=== PATIENT | female | born 1960 | race American Indian/Alaskan Native ===

== ENCOUNTER 2017-06-08 03:27 | Emergency (ER) | payer BC ==
--- NOTE | 2017-06-08 04:24 | ED PDOC ---
HPI: Female Pain Time Seen by Provider: 06/08/17 03:43 Chief Complaint (Nursing): Female Genitourinary Chief Complaint (Provider): Dysuria and Frequency History Per: Patient History/Exam Limitations: no limitations Onset/Duration Of Symptoms: Days (2 days ago) Current Symptoms Are (Timing): Still Present Additional Complaint(s): 56 yo female with a history of diabetes and hypertension, presents to the ED complaining of frequency and dysuria, onset of 2 days ago. Patient reports having protected intercourse, for the first time in 2 years, in her apartment on 2 days ago, where she felt a popping sensation in the vagina. She denies any blood but states that this was when pain ensued. Past Medical History Reviewed: Historical Data, Nursing Documentation, Vital Signs Vital Signs: Last Vital Signs Temp 98.7 F 06/08/17 03:38 Pulse 120 H 06/08/17 03:38 Resp 16 06/08/17 03:38 BP 130/103 H 06/08/17 03:38 Pulse Ox 99 06/08/17 03:38 - Medical History PMH: Diabetes, HTN, Hyperlipidemia - Surgical History Surgical History: Cholecystectomy - Family History Family History: States: Unknown Family Hx - Social History Current smoker - smoking cessation education provided: No Ex-Smoker (has not smoked in the last 12 months): No Alcohol: Social Drugs: Denies - Home Medications Home Medications: Ambulatory Orders Medication Instructions Recorded Naproxen 500 mg PO Q12 #20 tab 04/07/15 Nitrofurantoin Macrocrystals 100 mg PO BID 5 Days cap 06/08/17 [Macrobid] Phenazopyridine [Pyridium] 200 mg PO TID 2 Days tab 06/08/17 - Allergies Allergies/Adverse Reactions: Allergies Allergy/AdvReac Type Severity Reaction Status Date / Time No Known Allergies Allergy Verified 04/07/15 07:40 Review of Systems ROS Statement: Except As Marked, All Systems Reviewed And Found Negative Genitourinary Female: Positive for: Dysuria, Frequency, Other (popping sensation in the vagina). Negative for: Hematuria, Vaginal Bleeding Physical Exam - Reviewed Nursing Documentation Reviewed: Yes Vital Signs Reviewed: Yes - Physical Exam Appears: Positive for: Well, Non-toxic, No Acute Distress Head Exam: Positive for: ATRAUMATIC, NORMAL INSPECTION, NORMOCEPHALIC Skin: Positive for: Normal Color, Warm, DRY Eye Exam: Positive for: EOMI, Normal appearance, PERRL ENT: Positive for: Normal ENT Inspection Neck: Positive for: Normal, Painless ROM Cardiovascular/Chest: Positive for: Regular Rate, Rhythm. Negative for: Murmur Respiratory: Positive for: Normal Breath Sounds. Negative for: Respiratory Distress Gastrointestinal/Abdominal: Positive for: Normal Exam, Soft. 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 Negative for: Pedal Edema, Deformity Neurologic/Psych: Positive for: Alert, Oriented. Negative for: Motor/Sensory Deficits - ECG O2 Sat by Pulse Oximetry: 99 (RA) Pulse Ox Interpretation: Normal Medical Decision Making Medical Decision Making: Time: --04:00 Impression: --UTI vs mechanical trauma of intercourse Plan: --ED Urine Dip --ED Urine Preg --Urine Culture --Urinalysis Reassess --06:04 Labs reviewed and show a UTI is present. Patient is stable for discharge home. BP improved, HR decreasing. Scribe Attestation: Documented by Jeovany Sol acting as a scribe for Juan Diane MD. Provider Attestation: All medical record entries made by the Scribe were at my direction and personally dictated by me. I have reviewed the chart and agree that the record accurately reflects my personal performance of the history, physical exam, medical decision making, and the department course for this patient. I have also personally directed, reviewed, and agree with the discharge instructions and disposition. Disposition - Clinical Impression Clinical Impression: Urinary tract infection - Disposition Referrals: [facility] [place] [Outside] Disposition: Routine/Home Disposition Time: 06:04 Condition: IMPROVED Prescriptions: Nitrofurantoin Macrocrystals [Macrobid] 100 mg PO BID 5 Days cap Phenazopyridine [Pyridium] 200 mg PO TID 2 Days tab Instructions: Urinary Tract Infection, Adult (DC) Forms: [facility] (Greek)
[2017-06-08 05:33] LABS: URINE BACTERIA FEW (<OCC); URINE BILIRUBIN NEGATIVE (NEGATIVE); URINE BLOOD LARGE (NEGATIVE); URINE CLARITY TURBID (Clear); URINE COLOR AMBER (YELLOW); URINE GLUCOSE (UA) 150 mg/dL (Normal); URINE LEUKOCYTE ESTERASE LARGE Leu/uL (Negative); URINE NITRATE NEGATIVE (NEGATIVE); URINE PROTEIN 100 mg/dL (NEGATIVE); URINE UROBILINOGEN 0.2-1.0 mg/dL (0.2-1.0); WBC CLUMPS RARE /hpf
[2017-06-08 06:24] VITALS: BP 122/66; PULSE 106; RESP 17; TEMP 98.2; O2SAT 100
== END 2017-06-08 06:06 | disposition home or self-care (01) ==
LOC: H.ER 03:27
DX: N39.0 Urinary tract infection, site not specified (principal); E11.9 Type 2 diabetes mellitus without complications; E78.5 Hyperlipidemia, unspecified; I10 Essential (primary) hypertension

== ENCOUNTER 2017-06-24 21:55 | Inpatient (IN) | payer BC ==
[2017-06-24] MEDS ORDERED: Sodium Chloride 0.9% 1,000 ML IV STA (22:48)
[2017-06-24 23:11] LABS: SQUAMOUS EPITHIAL 16 /hpf (0-5); URINE BACTERIA RARE (<OCC); URINE BILIRUBIN NEGATIVE (NEGATIVE); URINE BLOOD SMALL (NEGATIVE); URINE CLARITY CLOUDY (Clear); URINE COLOR AMBER (YELLOW); URINE GLUCOSE (UA) NEG (Normal); URINE LEUKOCYTE ESTERASE LARGE Leu/uL (Negative); URINE PROTEIN 100 mg/dL (NEGATIVE); WBC CLUMPS FEW /hpf
[2017-06-24 23:18] LABS: BASO % 0.3 % (0.0-2.0); HEMOGLOBIN 12.2 g/dL (12.0-16.0); LYMPH # 0.9 K/uL (1.0-4.3); LYMPH % 5.8 % (20.0-40.0); MEAN CELL VOLUME 87.1 fl (81.0-99.0); MEAN CORPUSCULAR HGB CONC 34.4 g/dL (33.0-37.0); MEAN PLATELET VOLUME 8.5 fl (7.2-11.7); MONO # 0.4 K/uL (0.0-0.8); MONO % 2.7 % (0.0-10.0); NEUT # 13.5 K/uL (1.8-7.0); NEUT % 91.2 % (50.0-75.0); NRBC % 0.1 % (0.0-0.0); PLATELET COUNT 278 K/uL (130-400); RBC 4.07 Mil/uL (3.80-5.20); RED CELL DISTRIBUTION WIDTH 12.9 % (11.5-14.5); WHITE BLOOD COUNT 14.8 K/uL (4.8-10.8)
[2017-06-24] MEDS ORDERED: cefTRIAXone (Rocephin) 1 gm Inj ONE (23:25)
[2017-06-24 23:32] LABS: VENOUS BLOOD GAS BASE EXCESS 5.9 mmol/L (0.0-2.0); VENOUS BLOOD GAS PCO2 31 mmHg (40-60); VENOUS BLOOD GAS PO2 46 mm/Hg (30-55); VENOUS BLOOD PH 7.56 (7.32-7.43)
[2017-06-24 23:33] LABS: BLOOD UREA NITROGEN 17 mg/dl (7-17); CALCIUM 9.6 mg/dL (8.4-10.2); GFR AFRICAN-AMERICAN > 60; GFR NON-AFRICAN AMERICAN > 60
--- NOTE | 2017-06-24 23:36 | ED PDOC ---
HPI: General Adult Time Seen by Provider: 06/24/17 22:45 Chief Complaint (Nursing): Back Pain Chief Complaint (Provider): fever, dysuria, back pain History Per: Patient History/Exam Limitations: no limitations Onset/Duration Of Symptoms: Days (2x) Current Symptoms Are (Timing): Still Present Additional Complaint(s): 56 y/o female with a past medical history of diabetes and hypertension presents to the ED complaining of fever, dysuria, back pain onset two days ago and two episodes of vomiting. Reports of urine infection and was given Nitrofurantoin without any relief. Patient developed fever, dysuria, and abdominal pain afterwards. Patient took Tylenol for the fever. PMD: Dr. Newton Past Medical History Reviewed: Historical Data, Nursing Documentation, Vital Signs Vital Signs: Last Vital Signs Temp 101.7 F H 06/24/17 23:45 Pulse 133 H 06/24/17 22:09 Resp 18 06/24/17 22:09 BP 141/91 H 06/24/17 22:09 Pulse Ox 97 06/24/17 23:39 - Medical History PMH: Diabetes, HTN, Hyperlipidemia Denies: Chronic Kidney Disease - Surgical History Surgical History: Cholecystectomy, - Family History Family History: States: Unknown Family Hx - Home Medications Home Medications: Ambulatory Orders Medication Instructions Recorded Nitrofurantoin Macrocrystals 100 mg PO BID 5 Days cap 06/08/17 [Macrobid] Atorvastatin [Lipitor] 20 mg PO DAILY 06/24/17 Insulin Degludec/Liraglutide See Protocol SQ DAILY 06/24/17 [Xultophy 100 Unit-3.6MG/ml Pen] Metformin HCl [Glucophage] 1 tab PO BID 06/24/17 - Allergies Allergies/Adverse Reactions: Allergies Allergy/AdvReac Type Severity Reaction Status Date / Time latex Allergy Severe ANAPHYLAXIS Verified 06/24/17 22:06 Review of Systems ROS Statement: Except As Marked, All Systems Reviewed And Found Negative Constitutional: Positive for: Fever Gastrointestinal: Positive for: Vomiting (2 episodes), Abdominal Pain Genitourinary Female: Positive for: Dysuria Musculoskeletal: Positive for: Back Pain Physical Exam - Reviewed Nursing Documentation Reviewed: Yes Vital Signs Reviewed: Yes - Physical Exam Appears: Positive for: Well, Non-toxic, No Acute Distress Head Exam: Positive for: ATRAUMATIC, NORMAL INSPECTION, NORMOCEPHALIC Skin: Positive for: Normal Color, Warm, Dry Eye Exam: Positive for: EOMI, Normal appearance, PERRL ENT: Positive for: Normal ENT Inspection Neck: Positive for: Normal, Painless ROM, Supple. Negative for: Decreased ROM Cardiovascular/Chest: Positive for: Tachycardia. Negative for: Murmur Respiratory: Positive for: Normal Breath Sounds. Negative for: Decreased Breath Sounds, Accessory Muscle Use, Wheezing Gastrointestinal/Abdominal: Positive for: Tenderness (suprapubic ) Back: Positive for: Normal Inspection. Negative for: L CVA Tenderness, R CVA Tenderness Extremity: Positive for: Normal ROM. Negative for: Tenderness, Pedal Edema, Deformity Neurologic/Psych: Positive for: Alert, Oriented, Gait - Laboratory Results Result Diagrams: 06/24/17 23:15 06/24/17 23:15 - ECG O2 Sat by Pulse Oximetry: 97 (RA) Pulse Ox Interpretation: Normal Medical Decision Making Medical Decision Making: Time: 23:15 Initial Impression: Fever with dysuria and back pain Differential Diagnosis includes but is not limited to: urinary tract infection with complications and equal pyelonephritis, kidney stone, and sepsis Initial Plan: --VBG Shock Panel --Abdomen & Pelvis IV Contrast [CT] --BMP --CBC --Normal Saline 1,000 mls/hr --Rocephin 1gm --Tylenol 975mg --Blood Culture --Urine Culture --Urinalysis --Reevaluation Documented by Sanjana Astorga acting as a scribe for Pratibha Valdivia MD. All medical record entries made by the Scribe were at my direction and personally dictated by me. I have reviewed the chart and agree that the record accurately reflects my personal performance of the history, physical exam, medical decision making, and the department course for this patient. I have also personally directed, reviewed, and agree with the discharge instructions and disposition. Disposition - Clinical Impression Clinical Impression: Urinary tract infection, Pyelonephritis, Sepsis - Patient ED Disposition Is Patient to be Admitted: Yes Discussed With DrRebel: Kennedy Campos Doctor Will See Patient In The: ED Counseled Patient/Family Regarding: Studies Performed, Diagnosis - Disposition Disposition Time: 23:50 Condition: FAIR - Pt Status Changed To: Hospital Disposition Of: Inpatient - Admit Certification Admit to Inpatient:: After my assessment, the patient will require hospitalization for at least two midnights. This is because of the severity of symptoms shown, intensity of services needed, and/or the medical risk in this patient being treated as an outpatient. - POA Present On Arrival: Poor Glycemic Control
[2017-06-24] MEDS ORDERED: Iohexol 300 100 ML IJ ONE (23:57)
[2017-06-24] MEDS ORDERED: Sodium Chloride 0.9% 100 ML ONE (23:57)
--- NOTE | 2017-06-25 00:15 | CP.PCM.HP ---
History of Present Illness - History of Present Illness History of Present Illness: PMD: Dr. Newton Chief complaint: Fever/Dysuria/Abdominal pain The patient was seen and examined din the ED HPI: 56 years olf female with hx of DM II, HTN and HLD who comes with Fever, continuous right back pain radiating to the Infraumbilical region, associated with dysuria and urinary frequency, vomiting diarrhea and dizziness. She was last seen in this ED on 06/08/17 and diagnosed with UTI, receiving prescription for Macrobid for 5 days. She continued with these symptoms after the Antibiotics finished and saw her PMD one day prior coming to the ED. In the ED the Temperature was 102.5F, HR 133/min PMH: DM II; HTN, HLD PSH: Cholecystectomy, X2; Tummy tuck; SH: Alcohol socially; No illegal drug use; No smoking FH: States: Unknown Family Hx Allergies: Latex Stirum Medidcation: Reviewed Present on Admission - Present on Admission Any Indicators Present on Admission: No History of DVT/PE: No History of Uncontrolled Diabetes: No Urinary Catheter: No Decubitus Ulcer Present: No Review of Systems - Constitutional Constitutional: Chills, Fever, Headache. absent: Anorexia - EENT Eyes: Requires Corrective Lenses. absent: Decreased Night Vision, Diplopia, Sees Flashes Ears: absent: Decreased Hearing, Ear Discharge, Tinnitus Nose/Mouth/Throat: absent: Epistaxis, Nasal Congestion, Nasal Discharge, Sinus Pain, Sinus Pressure - Cardiovascular Cardiovascular: absent: Chest Pain, Dyspnea, Pedal Edema - Respiratory Respiratory: absent: Cough, Dyspnea, Wheezing, Snoring, Stridor - Gastrointestinal Gastrointestinal: Abdominal Pain, Diarrhea. absent: Nausea, Vomiting - Genitourinary Genitourinary: Dysuria. absent: Flank Pain, Urinary Frequency - Musculoskeletal Musculoskeletal: Back Pain. absent: Limited Range of Motion - Integumentary Integumentary: absent: Pruritus, Rash, Skin Ulcer, Sores, Striae, Swelling - Neurological Neurological: Dizziness, Headaches - Psychiatric Psychiatric: absent: Anxiety, Depression, Difficulty Concentrating, Panic Attacks - Endocrine Endocrine: absent: Palpitations, Polydipsia, Polyphagia, Polyuria - Hematologic/Lymphatic Hematologic: absent: Easy Bleeding, Easy Bruising Past Patient History - Past Medical History & Family History Past Medical History?: Yes - Past Social History Smoking Status: Never Smoked Chewing Tobacco Use: No Cigar Use: No Alcohol: Social Drugs: Denies Home Situation {Lives}: With Family - CARDIAC Hx Hypertension: Yes - PULMONARY Hx Respiratory Disorders: No - NEUROLOGICAL Hx Neurological Disorder: No - HEENT Hx HEENT Problems: No - RENAL Hx Chronic Kidney Disease: No - ENDOCRINE/METABOLIC Hx Diabetes Mellitus Type 2: Yes - HEMATOLOGICAL/ONCOLOGICAL Hx Blood Disorders: No - INTEGUMENTARY Hx Dermatological Problems: No - MUSCULOSKELETAL/RHEUMATOLOGICAL Hx Musculoskeletal Disorders: No - GASTROINTESTINAL Hx Gastrointestinal Disorders: No - GENITOURINARY/GYNECOLOGICAL Hx Urinary Tract Infection: Yes - PSYCHIATRIC Hx Psychophysiologic Disorder: No Hx Substance Use: No - SURGICAL HISTORY Hx Section: Yes (X2) Hx Cholecystectomy: Yes - ANESTHESIA Hx Anesthesia: Yes Hx Anesthesia Reactions: No Meds Allergies/Adverse Reactions: Allergies Allergy/AdvReac Type Severity Reaction Status Date / Time latex Allergy Severe ANAPHYLAXIS Verified 06/24/17 22:06 Physical Exam - Constitutional Appears: No Acute Distress - Head Exam Head Exam: ATRAUMATIC, NORMAL INSPECTION, NORMOCEPHALIC - Eye Exam Eye Exam: EOMI, Normal appearance Pupil Exam: NORMAL ACCOMODATION, PERRL - ENT Exam ENT Exam: Mucous Membranes Moist, Normal Exam, Normal External Ear Exam - Neck Exam Neck exam: Positive for: Full Rom, Normal Inspection. Negative for: Lymphadenopathy, Tenderness - Respiratory Exam Respiratory Exam: Clear to Auscultation Bilateral. absent: Rales, Rhonchi, Wheezes - Cardiovascular Exam Cardiovascular Exam: REGULAR RHYTHM, RRR, +S1, +S2 - GI/Abdominal Exam Additional comments: Flat, Soft, pain at infraumbilicl region,no guarding, no rebound tenderness, Decreased bowel sounds. - Rectal Exam Rectal Exam: Deferred - Extremities Exam Extremities exam: Positive for: full ROM, normal inspection. Negative for: pedal edema, tenderness - Back Exam Back exam: CVA tenderness (R), NORMAL INSPECTION - Neurological Exam Neurological exam: Oriented x3, Reflexes Normal - Psychiatric Exam Psychiatric exam: Normal Affect, Normal Mood - Skin Skin Exam: Dry, Intact, Normal Color, Warm Results - Vital Signs Recent Vital Signs: Last Vital Signs Temp 101.7 F H 06/24/17 23:45 Pulse 133 H 06/24/17 22:09 Resp 18 06/24/17 22:09 BP 141/91 H 03/08/18 22:09 Pulse Ox 97 06/24/17 23:51 - Labs Result Diagrams: 06/24/17 23:15 06/24/17 23:15 Labs: Laboratory Results - last 24 hr 06/24/17 06/24/17 06/24/17 22:58 23:15 23:15 WBC 14.8 H RBC 4.07 Hgb 12.2 Hct 35.4 MCV 87.1 MCH 30.0 MCHC 34.4 RDW 12.9 Plt Count 278 MPV 8.5 Neut % (Auto) 91.2 H Lymph % (Auto) 5.8 L Curry % (Auto) 2.7 Eos % (Auto) 0.0 Baso % (Auto) 0.3 Neut # (Auto) 13.5 H Lymph # (Auto) 0.9 L Curry # (Auto) 0.4 Eos # (Auto) 0.0 Baso # (Auto) 0.0 pO2 VBG pH VBG pCO2 VBG HCO3 VBG Total CO2 VBG O2 Sat (Calc) VBG Base Excess VBG Potassium Glucose Lactate FiO2 Sodium 138 Potassium 3.4 L Chloride 95 L Carbon Dioxide 27 Anion Gap 19 BUN 17 Creatinine 0.8 Est GFR ( Amer) > 60 Est GFR (Non-Af Amer) > 60 Random Glucose 203 H Calcium 9.6 Venous Blood Potassium Urine Color Janell Urine Clarity Cloudy Urine pH 7.0 Ur Specific Trent 1.015 Urine Protein 100 Urine Glucose (UA) Neg Urine Ketones Negative Urine Blood Small Urine Nitrate Positive H Urine Bilirubin Negative Urine Urobilinogen 2.0 H Ur Leukocyte Esterase Large Urine RBC (Auto) 70 H Urine WBC Clumps (Auto) Few H Urine Microscopic WBC 796 H Ur Squamous Epith Cells 16 H Urine Bacteria Rare 06/24/17 23:26 WBC RBC Hgb Hct MCV MCH MCHC RDW Plt Count MPV Neut % (Auto) Lymph % (Auto) Curry % (Auto) Eos % (Auto) Baso % (Auto) Neut # (Auto) Lymph # (Auto) Curry # (Auto) Eos # (Auto) Baso # (Auto) pO2 46 VBG pH 7.56 H VBG pCO2 31 L VBG HCO3 29.3 VBG Total CO2 28.8 H VBG O2 Sat (Calc) 92.8 H VBG Base Excess 5.9 H VBG Potassium 3.4 L Glucose 208 H Lactate 1.9 FiO2 21.0 Sodium 136.0 Potassium Chloride 100.0 Carbon Dioxide Anion Gap BUN Creatinine Est GFR ( Amer) Est GFR (Non-Af Amer) Random Glucose Calcium Venous Blood Potassium 3.4 L Urine Color Urine Clarity Urine pH Ur Specific Trent Urine Protein Urine Glucose (UA) Urine Ketones Urine Blood Urine Nitrate Urine Bilirubin Urine Urobilinogen Ur Leukocyte Esterase Urine RBC (Auto) Urine WBC Clumps (Auto) Urine Microscopic WBC Ur Squamous Epith Cells Urine Bacteria - Imaging and Cardiology CT scan - abdomen Status: Image reviewed by me, Report reviewed by me Additional comment: EXAM: CT Abdomen and Pelvis With Intravenous Contrast EXAM DATE/TIME: 06/24/2017 11:03 PM FINDINGS: Lower thorax: The heart size is normal. There is dependent atelectasis at the lung bases. There is a small hiatal hernia. ABDOMEN: Liver: There is fatty infiltration of the liver. Gallbladder and bile ducts: Gallbladder is absent.There is prominence of the common duct. Pancreas: unremarkable Spleen: unremarkable Adrenals: unremarkable Kidneys and ureters: There is a left renal cyst.Left kidney is unremarkable. There is mild left ureteral mucosal thickening. There are peripheral cortical perfusion defects greatest in the upper pole of the right kidney. There is mild renal pelvic and ureteral mucosal thickening and enhancement. There is very mild right ureterectasis. There are no ureteral stones. Stomach and bowel: Stomach is incompletely distended which accentuates the gastric wall.Bowel rotation is normal. Small bowel is mildly distended with fluid and air. There is no obstruction. There is mild terminal ileal wall thickening. Appendix is unremarkable. There is mild transverse colon wall thickening.Colon is incompletely distended which limits evaluation. There is diverticulosis. Appendix: See stomach and bowel PELVIS: Bladder: Bladder is partially distended. There is mild bladder wall thickening. Reproductive: Uterus and adnexal structures are unremarkable. ABDOMEN and PELVIS: Intraperitoneal space: There is no significant fluid.There is no free air. Bones/joints: There are degenerative changes in the osseus structures. Soft tissues: unremarkable Vasculature: There are multiple calcified phleboliths in both flanks. There are multiple phleboliths in the pelvis. There are atherosclerotic calcifications in the aorta. Lymph nodes: There is no pathologic adenopathy. IMPRESSION: Right pyelonephritis, right renal pelvic and bilateral ureteral mucosal thickening and enhancement consistent with urinary tract infection; bladder wall thickening consistent with cystitis;; ileus; possible enterocolitis Assessment & Plan - Assessment and Plan (Free Text) Assessment: #. Acute Pyelonephritis with Cystitis #. Sepsis #. Enterocolitis #. DM II with hyperglycemia #. Hypokalemia Plan: 56 years olf female with hx of DM II, HTN and HLD who comes with Fever, continuous right back pain radiating to the Infraumbilical region, associated with dysuria and urinary frequency, vomiting diarrhea and dizziness. She was last seen in this ED on 06/08/17 and diagnosed with UTI, receiving prescription for Macrobid for 5 days. She continued with these symptoms after the Antibiotics finished and saw her PMD one day prior coming to the ED. In the ED the Temperature was 102.5F, HR 133/min #. Acute Pyelonephritis with Cystitis - Zosyn - Pain management #. Sepsis - Consult ID Dr Elias - Follow Blood and Urine culture - Antibiotics - IV fluids #. Enterocolitis - Stool for C Diff - Flagyl #. DM II with Hyperglycemia - Regular Insulin slicing scale according to Accucheck - Hold Glucophage - #. Hypokalemia, replaced - KCL mantenance in IV Fluids - follow electrolytes #. DVT prophylaxis with lovenox #. Code Status: Full - Date & Time Date: 06/25/17 Time: 00:14
[2017-06-25] MEDS ORDERED: Potassium Chloride 20 mEq ER Tab PO ONE ×2 (00:34→01:44)
--- NOTE | 2017-06-25 00:39 | CT ---
EXAM: CT Abdomen and Pelvis With Intravenous Contrast EXAM DATE/TIME: 06/24/2017 11:03 PM CLINICAL HISTORY: 56 years old, female; Signs and symptoms; Fever; Prior surgery; Surgery date: 6+ months; Surgery type: Gall bladder. x 3; Additional info: Dysuria back pain fever TECHNIQUE: Axial computed tomography images of the abdomen and pelvis with intravenous contrast. All CT scans at this facility use one or more dose reduction techniques, viz.: automated exposure control; ma/kV adjustment per patient size (including targeted exams where dose is matched to indication; i.e. head); or iterative reconstruction technique. Coronal and sagittal reformatted images were created and reviewed. CONTRAST: 90 mL of [id number] administered intravenously. COMPARISON: There are no prior studies for comparison. FINDINGS: Lower thorax: The heart size is normal. There is dependent atelectasis at the lung bases. There is a small hiatal hernia. ABDOMEN: Liver: There is fatty infiltration of the liver. Gallbladder and bile ducts: Gallbladder is absent.There is prominence of the common duct. Pancreas: unremarkable Spleen: unremarkable Adrenals: unremarkable Kidneys and ureters: There is a left renal cyst.Left kidney is unremarkable. There is mild left ureteral mucosal thickening. There are peripheral cortical perfusion defects greatest in the upper pole of the right kidney. There is mild renal pelvic and ureteral mucosal thickening and enhancement. There is very mild right ureterectasis. There are no ureteral stones. Stomach and bowel: Stomach is incompletely distended which accentuates the gastric wall.Bowel rotation is normal. Small bowel is mildly distended with fluid and air. There is no obstruction. There is mild terminal ileal wall thickening. Appendix is unremarkable. There is mild transverse colon wall thickening.Colon is incompletely distended which limits evaluation. There is diverticulosis. Appendix: See stomach and bowel PELVIS: Bladder: Bladder is partially distended. There is mild bladder wall thickening. Reproductive: Uterus and adnexal structures are unremarkable. ABDOMEN and PELVIS: Intraperitoneal space: There is no significant fluid.There is no free air. Bones/joints: There are degenerative changes in the osseus structures. Soft tissues: unremarkable Vasculature: There are multiple calcified phleboliths in both flanks. There are multiple phleboliths in the pelvis. There are atherosclerotic calcifications in the aorta. Lymph nodes: There is no pathologic adenopathy. IMPRESSION: Right pyelonephritis, right renal pelvic and bilateral ureteral mucosal thickening and enhancement consistent with urinary tract infection; bladder wall thickening consistent with cystitis;; ileus; possible enterocolitis Additional nonemergent findings as described above.
[2017-06-25] MEDS ORDERED: Potassium Chl 20 mEq in NS 1,000 ML IV SCH (00:45)
[2017-06-25 01:02] LABS: BANDS 7 % (0-2); LYMPHOCYTE 11 % (20-50); MONOCYTE 2 % (0-10); NEUTROPHIL 80 % (42-75); TOTAL CELLS COUNTED 100
[2017-06-25 01:04] LABS: ANISOCYTOSIS SLIGHT
[2017-06-25 01:05] LABS: HYPOCHROMIC SLIGHT; LARGE PLATELETS PRESENT; PLATELET ESTIMATE NORMAL (NORMAL)
--- NOTE | 2017-06-25 01:14 | ED PDOC ---
- Laboratory Results Result Diagrams: 06/24/17 23:15 06/24/17 23:15 - ECG O2 Sat by Pulse Oximetry: 97 (RA) Pulse Ox Interpretation: Normal Medical Decision Making Medical Decision Making: Time: 00:00 Patient signed out to me by Dr. Bocanegra pending sobriety and reevaluation. Documented by Sanjana Astorga acting as a scribe for Pratibha Valdivia MD. All medical record entries made by the Scribe were at my direction and personally dictated by me. I have reviewed the chart and agree that the record accurately reflects my personal performance of the history, physical exam, medical decision making, and the department course for this patient. I have also personally directed, reviewed, and agree with the discharge instructions and disposition. Disposition - Clinical Impression Clinical Impression: Urinary tract infection, Pyelonephritis, Sepsis - Disposition Condition: FAIR
[2017-06-25] MEDS: metroNIDAZOLE 500mg/100ml NS 100 ML IVPB SCH ×2 (03:50→08:21)
[2017-06-25] MEDS: Piperacillin/Tazobact 3.375 GM in Sodium Chloride 0.9% 100 ML IVPB SCH ×2 (04:42→10:09)
[2017-06-25 07:17] LABS: BASO # 0.1 K/uL (0.0-0.2); BASO % 0.4 % (0.0-2.0); EOS % 0.1 % (0.0-4.0); HEMOGLOBIN 11.3 g/dL (12.0-16.0); LYMPH # 1.7 K/uL (1.0-4.3); MEAN CELL VOLUME 88.4 fl (81.0-99.0); MEAN CORPUSCULAR HEMOGLOBIN 29.4 pg (27.0-31.0); MEAN CORPUSCULAR HGB CONC 33.3 g/dL (33.0-37.0); MEAN PLATELET VOLUME 8.4 fl (7.2-11.7); MONO # 1.1 K/uL (0.0-0.8); MONO % 5.7 % (0.0-10.0); NEUT # 15.9 K/uL (1.8-7.0); NEUT % 84.8 % (50.0-75.0); RBC 3.84 Mil/uL (3.80-5.20); RED CELL DISTRIBUTION WIDTH 12.9 % (11.5-14.5); WHITE BLOOD COUNT 18.8 K/uL (4.8-10.8)
[2017-06-25] MEDS: Insulin Regular 100 units/ml SC SCH ×4 (07:31→22:00)
[2017-06-25 07:49] LABS: BLOOD UREA NITROGEN 13 mg/dl (7-17); CALCIUM 9.1 mg/dL (8.4-10.2); GFR AFRICAN-AMERICAN > 60; GFR NON-AFRICAN AMERICAN > 60
--- NOTE | 2017-06-25 09:58 | CP.PCM.CON ---
History of Present Illness - History of Present Illness History of Present Illness: Infectious Disease Consultation Note- asked to see this patient at the request of the hospitalist for pyelonephritis/ sepsis HPI- Krystal is a 56 year old female with PMH of HTN, DM II, HLD who is admitted with dysurea, fever, chills, flank pain and in ED had Ct which was read as pyelonephritis and had + UA and fever and hence admitted for IV antibiotics and treament of this. patient also explains that about 2 weeks ago she had similar symptoms and came to ED and was diagnosed with UTI adn was d/c home with oral macrobid and she felt better for couple day but then her symptoms returned and this time much more intense. In the ED Temperature was 102.5F, HR 133/min. pt. also states she had nausea but states today she feels slightly betetr compared to admission but she still has right flank and back pain. PMH: DM II; HTN, HLD PSH: Cholecystectomy, X2; Tummy kemick; SH: Alcohol socially; No illegal drug use; No smoking FH: States: Unknown Family Hx Allergies: Latex Bledsoe NKDA Medidcation: Reviewed Review of Systems - Review of Systems Review of Systems: ROS- + fever, + chills, Denies any GUTIERREZ, denies any cough, denies any sob, denies any chest pain,+ lower abd and right flank and lower back pain, + nause , no vomiting, no diarrhea + dysurea denies any recent travel denies any sick contacts Past Patient History - Past Medical History & Family History Past Medical History?: Yes - Past Social History Smoking Status: Never Smoked Chewing Tobacco Use: No Cigar Use: No Alcohol: Social Drugs: Denies Home Situation {Lives}: With Family - CARDIAC Hx Hypertension: Yes - PULMONARY Hx Respiratory Disorders: No - NEUROLOGICAL Hx Neurological Disorder: No - HEENT Hx HEENT Problems: No - RENAL Hx Chronic Kidney Disease: No - ENDOCRINE/METABOLIC Hx Diabetes Mellitus Type 2: Yes - HEMATOLOGICAL/ONCOLOGICAL Hx Blood Disorders: No - INTEGUMENTARY Hx Dermatological Problems: No - MUSCULOSKELETAL/RHEUMATOLOGICAL Hx Musculoskeletal Disorders: No - GASTROINTESTINAL Hx Gastrointestinal Disorders: No - GENITOURINARY/GYNECOLOGICAL Hx Urinary Tract Infection: Yes - PSYCHIATRIC Hx Psychophysiologic Disorder: No Hx Substance Use: No - SURGICAL HISTORY Hx Section: Yes (X2) Hx Cholecystectomy: Yes - ANESTHESIA Hx Anesthesia: Yes Hx Anesthesia Reactions: No Meds Allergies/Adverse Reactions: Allergies Allergy/AdvReac Type Severity Reaction Status Date / Time latex Allergy Severe ANAPHYLAXIS Verified 06/24/17 22:06 - Medications Medications: Current Medications Acetaminophen (Tylenol 325mg Tab) 650 mg PO Q4 PRN PRN Reason: Fever >100.4 F Acetaminophen (Tylenol 325mg Tab) 650 mg PO Q4 PRN PRN Reason: For Pain scale 1-7 Enoxaparin Sodium (Lovenox) 40 mg SC DAILY CHELSY PRN Reason: Protocol Potassium Chloride/Sodium Chloride (Potassium Chl 20 Meq In Ns) 1,000 mls @ 100 mls/hr IV .Q10H [facility] Stop: 06/25/17 10:44 Last Admin: 06/25/17 02:22 Dose: 100 mls/hr Piperacillin Sod/Tazobactam (Sod 3.375 gm/ Sodium Chloride) 100 mls @ 100 mls/ hr IVPB Q6 CHELSY PRN Reason: Protocol Last Admin: 06/25/17 04:42 Dose: 100 mls/hr Metronidazole (Flagyl 500mg/100ml Ns) 100 mls @ 100 mls/hr IVPB Q8@0400,1200, 2000 CHELSY PRN Reason: Protocol Ibuprofen (Motrin Tab) 600 mg PO Q6 PRN PRN Reason: Pain, severe (8-10) Last Admin: 06/25/17 09:25 Dose: 600 mg Insulin Human Regular (Humulin R) 0 units SC ACHS CHELSY PRN Reason: Protocol Last Admin: 06/25/17 07:31 Dose: Not Given Physical Exam - Constitutional Appears: No Acute Distress - Head Exam Head Exam: ATRAUMATIC - Eye Exam Eye Exam: EOMI, PERRL - ENT Exam ENT Exam: Normal Oropharynx - Neck Exam Neck exam: Positive for: Full Rom - Respiratory Exam Respiratory Exam: Clear to Auscultation Bilateral, NORMAL BREATHING PATTERN - Cardiovascular Exam Cardiovascular Exam: RRR, +S1, +S2 - GI/Abdominal Exam GI & Abdominal Exam: Normal Bowel Sounds, Soft Additional comments: + tenderness with palpation in the lower abd mostly right lower abd and flank and + right CVA tenderness No rebound - Extremities Exam Extremities exam: Positive for: normal inspection - Neurological Exam Neurological exam: Alert, Oriented x3 Results - Vital Signs Recent Vital Signs: Last Vital Signs Temp 99.2 F 03/09/18 07:55 Pulse 97 H 06/25/17 07:55 Resp 20 06/25/17 07:55 BP 123/80 06/25/17 07:55 Pulse Ox 98 06/25/17 07:55 - Labs Result Diagrams: 06/25/17 06:50 06/25/17 06:50 Labs: Laboratory Results - last 24 hr 06/24/17 06/24/17 06/24/17 22:58 23:15 23:15 WBC 14.8 H RBC 4.07 Hgb 12.2 Hct 35.4 MCV 87.1 MCH 30.0 MCHC 34.4 RDW 12.9 Plt Count 278 MPV 8.5 Neut % (Auto) 91.2 H Lymph % (Auto) 5.8 L [place] % (Auto) 2.7 Eos % (Auto) 0.0 Baso % (Auto) 0.3 Neut # (Auto) 13.5 H Lymph # (Auto) 0.9 L [place] # (Auto) 0.4 Eos # (Auto) 0.0 Baso # (Auto) 0.0 Neutrophils % (Manual) 80 H Band Neutrophils % 7 H Lymphocytes % (Manual) 11 L Monocytes % (Manual) 2 Platelet Estimate Normal Large Platelets Present Hypochromasia (manual) Slight Anisocytosis (manual) Slight Macrocytosis (manual) Slight pO2 VBG pH VBG pCO2 VBG HCO3 VBG Total CO2 VBG O2 Sat (Calc) VBG Base Excess VBG Potassium Glucose Lactate FiO2 Sodium 138 Potassium 3.4 L Chloride 95 L Carbon Dioxide 27 Anion Gap 19 BUN 17 Creatinine 0.8 Est GFR ( Amer) > 60 Est GFR (Non-Af Amer) > 60 POC Glucose (mg/dL) Random Glucose 203 H Calcium 9.6 Venous Blood Potassium Urine Color Janell Urine Clarity Cloudy Urine pH 7.0 Ur Specific [place] 1.015 Urine Protein 100 Urine Glucose (UA) Neg Urine Ketones Negative Urine Blood Small Urine Nitrate Positive H Urine Bilirubin Negative Urine Urobilinogen 2.0 H Ur Leukocyte Esterase Large Urine RBC (Auto) 70 H Urine WBC Clumps (Auto) Few H Urine Microscopic WBC 796 H Ur Squamous Epith Cells 16 H Urine Bacteria Rare 06/24/17 06/25/17 06/25/17 23:26 06:05 06:50 WBC 18.8 H RBC 3.84 Hgb 11.3 L Hct 34.0 MCV 88.4 MCH 29.4 MCHC 33.3 RDW 12.9 Plt Count 273 MPV 8.4 Neut % (Auto) 84.8 H Lymph % (Auto) 9.0 L [place] % (Auto) 5.7 Eos % (Auto) 0.1 Baso % (Auto) 0.4 Neut # (Auto) 15.9 H Lymph # (Auto) 1.7 [place] # (Auto) 1.1 H Eos # (Auto) 0.0 Baso # (Auto) 0.1 Neutrophils % (Manual) Band Neutrophils % Lymphocytes % (Manual) Monocytes % (Manual) Platelet Estimate Large Platelets Hypochromasia (manual) Anisocytosis (manual) Macrocytosis (manual) pO2 46 VBG pH 7.56 H VBG pCO2 31 L VBG HCO3 29.3 VBG Total CO2 28.8 H VBG O2 Sat (Calc) 92.8 H VBG Base Excess 5.9 H VBG Potassium 3.4 L Glucose 208 H Lactate 1.9 FiO2 21.0 Sodium 136.0 Potassium Chloride 100.0 Carbon Dioxide Anion Gap BUN Creatinine Est GFR ( Amer) Est GFR (Non-Af Amer) POC Glucose (mg/dL) 152 H Random Glucose Calcium Venous Blood Potassium 3.4 L Urine Color Urine Clarity Urine pH Ur Specific [place] Urine Protein Urine Glucose (UA) Urine Ketones Urine Blood Urine Nitrate Urine Bilirubin Urine Urobilinogen Ur Leukocyte Esterase Urine RBC (Auto) Urine WBC Clumps (Auto) Urine Microscopic WBC Ur Squamous Epith Cells Urine Bacteria 06/25/17 06:50 WBC RBC Hgb Hct MCV MCH MCHC RDW Plt Count MPV Neut % (Auto) Lymph % (Auto) [place] % (Auto) Eos % (Auto) Baso % (Auto) Neut # (Auto) Lymph # (Auto) [place] # (Auto) Eos # (Auto) Baso # (Auto) Neutrophils % (Manual) Band Neutrophils % Lymphocytes % (Manual) Monocytes % (Manual) Platelet Estimate Large Platelets Hypochromasia (manual) Anisocytosis (manual) Macrocytosis (manual) pO2 VBG pH VBG pCO2 VBG HCO3 VBG Total CO2 VBG O2 Sat (Calc) VBG Base Excess VBG Potassium Glucose Lactate FiO2 Sodium 143 Potassium 3.9 Chloride 101 Carbon Dioxide 27 Anion Gap 19 BUN 13 Creatinine 0.8 Est GFR ( Amer) > 60 Est GFR (Non-Af Amer) > 60 POC Glucose (mg/dL) Random Glucose 149 H Calcium 9.1 Venous Blood Potassium Urine Color Urine Clarity Urine pH Ur Specific [place] Urine Protein Urine Glucose (UA) Urine Ketones Urine Blood Urine Nitrate Urine Bilirubin Urine Urobilinogen Ur Leukocyte Esterase Urine RBC (Auto) Urine WBC Clumps (Auto) Urine Microscopic WBC Ur Squamous Epith Cells Urine Bacteria Laboratory Results - last 72 hr 06/24/17 06/24/17 06/24/17 22:58 23:15 23:15 WBC 14.8 H RBC 4.07 Hgb 12.2 Hct 35.4 MCV 87.1 MCH 30.0 MCHC 34.4 RDW 12.9 Plt Count 278 MPV 8.5 Neut % (Auto) 91.2 H Lymph % (Auto) 5.8 L [place] % (Auto) 2.7 Eos % (Auto) 0.0 Baso % (Auto) 0.3 Neut # (Auto) 13.5 H Lymph # (Auto) 0.9 L [place] # (Auto) 0.4 Eos # (Auto) 0.0 Baso # (Auto) 0.0 Neutrophils % (Manual) 80 H Band Neutrophils % 7 H Lymphocytes % (Manual) 11 L Monocytes % (Manual) 2 Platelet Estimate Normal Large Platelets Present Hypochromasia (manual) Slight Anisocytosis (manual) Slight Macrocytosis (manual) Slight pO2 VBG pH VBG pCO2 VBG HCO3 VBG Total CO2 VBG O2 Sat (Calc) VBG Base Excess VBG Potassium Glucose Lactate FiO2 Sodium 138 Potassium 3.4 L Chloride 95 L Carbon Dioxide 27 Anion Gap 19 BUN 17 Creatinine 0.8 Est GFR ( Amer) > 60 Est GFR (Non-Af Amer) > 60 POC Glucose (mg/dL) Random Glucose 203 H Calcium 9.6 Venous Blood Potassium Urine Color Janell Urine Clarity Cloudy Urine pH 7.0 Ur Specific [place] 1.015 Urine Protein 100 Urine Glucose (UA) Neg Urine Ketones Negative Urine Blood Small Urine Nitrate Positive H Urine Bilirubin Negative Urine Urobilinogen 2.0 H Ur Leukocyte Esterase Large Urine RBC (Auto) 70 H Urine WBC Clumps (Auto) Few H Urine Microscopic WBC 796 H Ur Squamous Epith Cells 16 H Urine Bacteria Rare 06/24/17 06/25/17 06/25/17 23:26 06:05 06:50 WBC 18.8 H RBC 3.84 Hgb 11.3 L Hct 34.0 MCV 88.4 MCH 29.4 MCHC 33.3 RDW 12.9 Plt Count 273 MPV 8.4 Neut % (Auto) 84.8 H Lymph % (Auto) 9.0 L [place] % (Auto) 5.7 Eos % (Auto) 0.1 Baso % (Auto) 0.4 Neut # (Auto) 15.9 H Lymph # (Auto) 1.7 [place] # (Auto) 1.1 H Eos # (Auto) 0.0 Baso # (Auto) 0.1 Neutrophils % (Manual) Band Neutrophils % Lymphocytes % (Manual) Monocytes % (Manual) Platelet Estimate Large Platelets Hypochromasia (manual) Anisocytosis (manual) Macrocytosis (manual) pO2 46 VBG pH 7.56 H VBG pCO2 31 L VBG HCO3 29.3 VBG Total CO2 28.8 H VBG O2 Sat (Calc) 92.8 H VBG Base Excess 5.9 H VBG Potassium 3.4 L Glucose 208 H Lactate 1.9 FiO2 21.0 Sodium 136.0 Potassium Chloride 100.0 Carbon Dioxide Anion Gap BUN Creatinine Est GFR ( Amer) Est GFR (Non-Af Amer) POC Glucose (mg/dL) 152 H Random Glucose Calcium Venous Blood Potassium 3.4 L Urine Color Urine Clarity Urine pH Ur Specific [place] Urine Protein Urine Glucose (UA) Urine Ketones Urine Blood Urine Nitrate Urine Bilirubin Urine Urobilinogen Ur Leukocyte Esterase Urine RBC (Auto) Urine WBC Clumps (Auto) Urine Microscopic WBC Ur Squamous Epith Cells Urine Bacteria 06/25/17 06/25/17 06:50 10:56 WBC RBC Hgb Hct MCV MCH MCHC RDW Plt Count MPV Neut % (Auto) Lymph % (Auto) [place] % (Auto) Eos % (Auto) Baso % (Auto) Neut # (Auto) Lymph # (Auto) [place] # (Auto) Eos # (Auto) Baso # (Auto) Neutrophils % (Manual) Band Neutrophils % Lymphocytes % (Manual) Monocytes % (Manual) Platelet Estimate Large Platelets Hypochromasia (manual) Anisocytosis (manual) Macrocytosis (manual) pO2 VBG pH VBG pCO2 VBG HCO3 VBG Total CO2 VBG O2 Sat (Calc) VBG Base Excess VBG Potassium Glucose Lactate FiO2 Sodium 143 Potassium 3.9 Chloride 101 Carbon Dioxide 27 Anion Gap 19 BUN 13 Creatinine 0.8 Est GFR ( Amer) > 60 Est GFR (Non-Af Amer) > 60 POC Glucose (mg/dL) 227 H Random Glucose 149 H Calcium 9.1 Venous Blood Potassium Urine Color Urine Clarity Urine pH Ur Specific [place] Urine Protein Urine Glucose (UA) Urine Ketones Urine Blood Urine Nitrate Urine Bilirubin Urine Urobilinogen Ur Leukocyte Esterase Urine RBC (Auto) Urine WBC Clumps (Auto) Urine Microscopic WBC Ur Squamous Epith Cells Urine Bacteria Microbiology 06/08/17 04:00 Urine,Clean Catch Urine Culture - Final Escherichia Coli Streptococcus anginosus group Accession No. : [id number] Patient Name / ID : ERIS Cruz / [id number] Exam Date : 06/25/2017 00:02:20 ( Approved ) Study Comment : Sex / Age : F / 56Y Creator : TERESITA GANDHI Dictator : Fisher Trap : Patrol Mother : TERESITA GANDHI Approver2 : Report Date : 06/25/2017 00:38:00 My Comment : [facility] Division of Radiology [address] [place] [address] Tel. no. Patient Name: JOAQUIM SCHULTE Pt. Address: [address] [place] [address] Rec #: [id number] [place] [address]: Shea BUENO, Pratibha Craft Pt CELL Order Location: [facility] : 1960 Female Age: 56 Order #: [id number] Reason for exam: dysuria back pain fever CT Scan ABD PELVIS IV CONTRAST ONLY Exam Date: 06/24/17 This imaging exam was performed at [facility] EXAM: CT Abdomen and Pelvis With Intravenous Contrast EXAM DATE/TIME: 06/24/2017 11:03 PM CLINICAL HISTORY: 56 years old, female; Signs and symptoms; Fever; Prior surgery; Surgery date : 6+ months; Surgery type: Gall bladder. x 3; Additional info: Dysuria back pain fever TECHNIQUE: Axial computed tomography images of the abdomen and pelvis with intravenous contrast. All CT scans at this facility use one or more dose reduction techniques, viz.: automated exposure control; ma/kV adjustment per patient size (including targeted exams where dose is matched to indication; i.e. head); or iterative reconstruction technique. Coronal and sagittal reformatted images were created and reviewed. CONTRAST: 90 mL of [id number] administered intravenously. COMPARISON: There are no prior studies for comparison. FINDINGS: Lower thorax: The heart size is normal. There is dependent atelectasis at the lung bases. There is a small hiatal hernia. ABDOMEN: Liver: There is fatty infiltration of the liver. Gallbladder and bile ducts: Gallbladder is absent.There is prominence of the common duct. Pancreas: unremarkable Spleen: unremarkable Adrenals: unremarkable Kidneys and ureters: There is a left renal cyst.Left kidney is unremarkable. There is mild left ureteral mucosal thickening. There are peripheral cortical perfusion defects greatest in the upper pole of the right kidney. There is mild renal pelvic and ureteral mucosal thickening and enhancement. There is very mild right ureterectasis. There are no ureteral stones. Stomach and bowel: Stomach is incompletely distended which accentuates the gastric wall.Bowel rotation is normal. Small bowel is mildly distended with fluid and air. There is no obstruction. There is mild terminal ileal wall thickening. Appendix is unremarkable. There is mild transverse colon wall thickening.Colon is incompletely distended which limits evaluation. There is diverticulosis. Appendix: See stomach and bowel PELVIS: Bladder: Bladder is partially distended. There is mild bladder wall thickening. Reproductive: Uterus and adnexal structures are unremarkable. ABDOMEN and PELVIS: Intraperitoneal space: There is no significant fluid.There is no free air. Bones/joints: There are degenerative changes in the osseus structures. Soft tissues: unremarkable Vasculature: There are multiple calcified phleboliths in both flanks. There are multiple phleboliths in the pelvis. There are atherosclerotic calcifications in the aorta. Lymph nodes: There is no pathologic adenopathy. IMPRESSION: Right pyelonephritis, right renal pelvic and bilateral ureteral mucosal thickening and enhancement consistent with urinary tract infection; bladder wall thickening consistent with cystitis;; ileus; possible enterocolitis Additional nonemergent findings as described above. Dictated By: Teresita Gandhi MD, MD Dictated Date/Time: 06/25/1737 Signed By: Teresita Gandhi MD Date Signed: 37 Transcribed By: HANK Transcribe Date/Time : 06/25/1737 JUANJOSE/MINH Assessment & Plan (1) Pyelonephritis Status: Acute (2) Sepsis Status: Acute (3) Urinary tract infection Status: Acute (4) Fever Status: Acute (5) Leukocytosis Status: Acute - Assessment and Plan (Free Text) Assessment: A/P- 56 year old female with DM Ii admitted with UTI and found to have Right pyelonephritis. febrile + lukocytoisis with left shift + UA urine cx from 06/08/2017e.coli pansensitive and strep anginosus. plan- check blood cx x 2 await urine cx from this admission. advise to d/c zosyn. advise to styart IV meropenem based on the RYLAND and sensitivities of the e.coli in urine cx from 06/08. monitor wbc and temp closely. all above d/w patient and she verbalizes full understanding of all above. Thank you for allowing me to take part in the care of this patient.
[2017-06-25] MEDS: Enoxaparin 40 mg Syringe SC SCH (10:09)
[2017-06-25] MEDS ORDERED: metroNIDAZOLE 500mg/100ml NS 100 ML IVPB SCH (12:00)
[2017-06-25] MEDS: Meropenem 1 GM in Sodium Chloride 0.9% 100 ML IVPB SCH (17:50)
[2017-06-25] MEDS: Sodium Chloride 0.9% 1,000 ML IV SCH (18:55)
[2017-06-26] MEDS: Meropenem 1 GM in Sodium Chloride 0.9% 100 ML IVPB SCH ×3 (01:00→16:14)
[2017-06-26] MEDS: Sodium Chloride 0.9% 1,000 ML IV SCH ×2 (05:00→14:58)
[2017-06-26] MEDS: Insulin Regular 100 units/ml SC SCH ×4 (06:39→22:10)
[2017-06-26 07:12] LABS: BASO % 0.3 % (0.0-2.0); EOS # 0.1 K/uL (0.0-0.7); EOS % 0.4 % (0.0-4.0); HEMOGLOBIN 11.1 g/dL (12.0-16.0); LYMPH # 2.1 K/uL (1.0-4.3); LYMPH % 15.2 % (20.0-40.0); MEAN CELL VOLUME 87.8 fl (81.0-99.0); MEAN CORPUSCULAR HEMOGLOBIN 29.3 pg (27.0-31.0); MEAN CORPUSCULAR HGB CONC 33.4 g/dL (33.0-37.0); MEAN PLATELET VOLUME 8.7 fl (7.2-11.7); MONO # 1.2 K/uL (0.0-0.8); MONO % 8.7 % (0.0-10.0); NEUT # 10.4 K/uL (1.8-7.0); NEUT % 75.4 % (50.0-75.0); RBC 3.78 Mil/uL (3.80-5.20); RED CELL DISTRIBUTION WIDTH 13.1 % (11.5-14.5); WHITE BLOOD COUNT 13.8 K/uL (4.8-10.8)
[2017-06-26 07:17] LABS: BLOOD UREA NITROGEN 10 mg/dl (7-17); CALCIUM 8.9 mg/dL (8.4-10.2); GFR AFRICAN-AMERICAN > 60; GFR NON-AFRICAN AMERICAN > 60
[2017-06-26] MEDS: Enoxaparin 40 mg Syringe SC SCH (09:01)
--- NOTE | 2017-06-26 10:57 | CP.PCM.PN ---
Subjective - Date & Time of Evaluation Date of Evaluation: 06/26/17 Time of Evaluation: 10:45 - Subjective Subjective: Still with low grade fever complains of flank pain dysuria resolved sl hypogastric discomfort no CP no SOB Objective - Vital Signs/Intake and Output Vital Signs (last 24 hours): Temp Pulse Resp BP Pulse Ox 99.7 F H 114 H 20 160/88 H 97 06/26/17 08:32 06/26/17 08:32 06/26/17 08:32 06/26/17 08:32 06/26/17 08:32 - Medications Medications: Current Medications Acetaminophen (Tylenol 325mg Tab) 650 mg PO Q4 PRN PRN Reason: Fever >100.4 F Acetaminophen (Tylenol 325mg Tab) 650 mg PO Q4 PRN PRN Reason: For Pain scale 1-7 Enoxaparin Sodium (Lovenox) 40 mg SC DAILY CHELSY PRN Reason: Protocol Last Admin: 06/26/17 09:01 Dose: 40 mg Meropenem 1 gm/ Sodium (Chloride) 100 mls @ 100 mls/hr IVPB Q8 CHELSY PRN Reason: Protocol Last Admin: 06/26/17 09:00 Dose: 100 mls/hr Sodium Chloride (Sodium Chloride 0.9%) 1,000 mls @ 100 mls/hr IV .Q10H [facility] Stop: 06/26/17 18:43 Last Admin: 06/26/17 05:00 Dose: Not Given Ibuprofen (Motrin Tab) 600 mg PO Q6 PRN PRN Reason: Pain, severe (8-10) Last Admin: 06/25/17 09:25 Dose: 600 mg Insulin Human Regular (Humulin R) 0 units SC ACHS CHELSY PRN Reason: Protocol Last Admin: 06/26/17 06:39 Dose: Not Given Ketorolac Tromethamine (Toradol) 15 mg IVP Q6 PRN PRN Reason: Pain, moderate (4-7) Ketorolac Tromethamine (Toradol) 30 mg IVP Q6 PRN PRN Reason: Pain, severe (8-10) Last Admin: 06/26/17 09:05 Dose: 30 mg - Labs Labs: 06/26/17 05:20 06/26/17 05:20 - Constitutional Appears: No Acute Distress - Head Exam Head Exam: ATRAUMATIC, NORMAL INSPECTION, NORMOCEPHALIC - Eye Exam Eye Exam: EOMI, Normal appearance Pupil Exam: NORMAL ACCOMODATION - ENT Exam ENT Exam: Mucous Membranes Moist, Normal External Ear Exam - Neck Exam Neck Exam: Full ROM. absent: Meningismus - Respiratory Exam Respiratory Exam: NORMAL BREATHING PATTERN. absent: Respiratory Distress - Cardiovascular Exam Cardiovascular Exam: REGULAR RHYTHM, +S1, +S2 - GI/Abdominal Exam GI & Abdominal Exam: Soft, Tenderness (hypogastric), Normal Bowel Sounds - Extremities Exam Extremities Exam: Full ROM, Normal Capillary Refill. absent: Calf Tenderness, Pedal Edema - Back Exam Back Exam: CVA tenderness (L), CVA tenderness (R) - Neurological Exam Neurological Exam: Alert, Awake, CN II-XII Intact, Oriented x3 - Psychiatric Exam Psychiatric exam: Normal Affect, Normal Mood - Skin Skin Exam: Dry, Normal Color, Warm Assessment and Plan (1) Sepsis Status: Acute (2) Pyelonephritis Status: Acute (3) DM type 2 (diabetes mellitus, type 2) Status: Acute - Assessment and Plan (Free Text) Assessment: 56 y/o lady with hx of DM, came in bec of fever, dysuria and flank pain. CT of the abd/Pelvis: Right pyelonephritis, right renal pelvic and bilateral ureteral mucosal thickening and enhancement consistent with urinary tract infection; bladder wall thickening consistent with cystitis;; ileus; possible enterocolitis (1) Sepsis sec to Pyelonephritis Status: Acute Urine c/s: Gram neg rods Blood c/s: neg so far cont IV Meropenem ID: following pt IVF hydration (2) DM type 2 (diabetes mellitus, type 2) Status: Acute accucheck start Levemir 8 units q hs DVT proph: Lovenox
--- NOTE | 2017-06-26 12:46 | CP.PCM.PN ---
Subjective - Date & Time of Evaluation Date of Evaluation: 06/26/17 Time of Evaluation: 12:46 - Subjective Subjective: ID Note- Pt. seen and examined today. states she feels better today and her right flank pain is less. fevers are trending down. denies any nausea today. Objective - Vital Signs/Intake and Output Vital Signs (last 24 hours): Temp Pulse Resp BP Pulse Ox 99.7 F H 114 H 20 160/88 H 97 06/26/17 08:32 06/26/17 08:32 06/26/17 08:32 06/26/17 08:32 06/26/17 08:32 - Medications Medications: Current Medications Acetaminophen (Tylenol 325mg Tab) 650 mg PO Q4 PRN PRN Reason: Fever >100.4 F Acetaminophen (Tylenol 325mg Tab) 650 mg PO Q4 PRN PRN Reason: For Pain scale 1-7 Enoxaparin Sodium (Lovenox) 40 mg SC DAILY [facility] PRN Reason: Protocol Last Admin: 06/26/17 09:01 Dose: 40 mg Meropenem 1 gm/ Sodium (Chloride) 100 mls @ 100 mls/hr IVPB Q8 [facility] PRN Reason: Protocol Last Admin: 06/26/17 09:00 Dose: 100 mls/hr Sodium Chloride (Sodium Chloride 0.9%) 1,000 mls @ 100 mls/hr IV .Q10H [facility] Stop: 06/26/17 18:43 Last Admin: 06/26/17 05:00 Dose: Not Given Ibuprofen (Motrin Tab) 600 mg PO Q6 PRN PRN Reason: Pain, severe (8-10) Last Admin: 06/25/17 09:25 Dose: 600 mg Insulin Human Regular (Humulin R) 0 units SC ACHS [facility] PRN Reason: Protocol Last Admin: 06/26/17 12:29 Dose: 3 units Ketorolac Tromethamine (Toradol) 15 mg IVP Q6 PRN PRN Reason: Pain, moderate (4-7) Ketorolac Tromethamine (Toradol) 30 mg IVP Q6 PRN PRN Reason: Pain, severe (8-10) Last Admin: 06/26/17 09:05 Dose: 30 mg - Labs Labs: - Additional Findings Additional findings: - Constitutional Appears: No Acute Distress - Head Exam Head Exam: ATRAUMATIC - Eye Exam Eye Exam: EOMI, PERRL - ENT Exam ENT Exam: Normal Oropharynx - Neck Exam Neck exam: Positive for: Full Rom - Respiratory Exam Respiratory Exam: Clear to Auscultation Bilateral, NORMAL BREATHING PATTERN - Cardiovascular Exam Cardiovascular Exam: RRR, +S1, +S2 - GI/Abdominal Exam GI & Abdominal Exam: Normal Bowel Sounds, Soft Additional comments: + tenderness with palpation in the lower abd , right lower abd and flank and + right CVA tenderness but less than yesterday No rebound - Extremities Exam Extremities exam: Positive for: normal inspection - Neurological Exam Neurological exam: Alert, Oriented x 3 Laboratory Results - last 72 hr 06/24/17 06/24/17 06/24/17 22:58 23:15 23:15 WBC 14.8 H RBC 4.07 Hgb 12.2 Hct 35.4 MCV 87.1 MCH 30.0 MCHC 34.4 RDW 12.9 Plt Count 278 MPV 8.5 Neut % (Auto) 91.2 H Lymph % (Auto) 5.8 L Rice % (Auto) 2.7 Eos % (Auto) 0.0 Baso % (Auto) 0.3 Neut # (Auto) 13.5 H Lymph # (Auto) 0.9 L Rice # (Auto) 0.4 Eos # (Auto) 0.0 Baso # (Auto) 0.0 Neutrophils % (Manual) 80 H Band Neutrophils % 7 H Lymphocytes % (Manual) 11 L Monocytes % (Manual) 2 Platelet Estimate Normal Large Platelets Present Hypochromasia (manual) Slight Anisocytosis (manual) Slight Macrocytosis (manual) Slight pO2 VBG pH VBG pCO2 VBG HCO3 VBG Total CO2 VBG O2 Sat (Calc) VBG Base Excess VBG Potassium Glucose Lactate FiO2 Sodium 138 Potassium 3.4 L Chloride 95 L Carbon Dioxide 27 Anion Gap 19 BUN 17 Creatinine 0.8 Est GFR ( Amer) > 60 Est GFR (Non-Af Amer) > 60 POC Glucose (mg/dL) Random Glucose 203 H Calcium 9.6 Venous Blood Potassium Urine Color Janell Urine Clarity Cloudy Urine pH 7.0 Ur Specific Farina 1.015 Urine Protein 100 Urine Glucose (UA) Neg Urine Ketones Negative Urine Blood Small Urine Nitrate Positive H Urine Bilirubin Negative Urine Urobilinogen 2.0 H Ur Leukocyte Esterase Large Urine RBC (Auto) 70 H Urine WBC Clumps (Auto) Few H Urine Microscopic WBC 796 H Ur Squamous Epith Cells 16 H Urine Bacteria Rare C. difficile Ag & Toxin 06/24/17 06/25/17 06/25/17 23:26 06:05 06:50 WBC 18.8 H RBC 3.84 Hgb 11.3 L Hct 34.0 MCV 88.4 MCH 29.4 MCHC 33.3 RDW 12.9 Plt Count 273 MPV 8.4 Neut % (Auto) 84.8 H Lymph % (Auto) 9.0 L Rice % (Auto) 5.7 Eos % (Auto) 0.1 Baso % (Auto) 0.4 Neut # (Auto) 15.9 H Lymph # (Auto) 1.7 Rice # (Auto) 1.1 H Eos # (Auto) 0.0 Baso # (Auto) 0.1 Neutrophils % (Manual) Band Neutrophils % Lymphocytes % (Manual) Monocytes % (Manual) Platelet Estimate Large Platelets Hypochromasia (manual) Anisocytosis (manual) Macrocytosis (manual) pO2 46 VBG pH 7.56 H VBG pCO2 31 L VBG HCO3 29.3 VBG Total CO2 28.8 H VBG O2 Sat (Calc) 92.8 H VBG Base Excess 5.9 H VBG Potassium 3.4 L Glucose 208 H Lactate 1.9 FiO2 21.0 Sodium 136.0 Potassium Chloride 100.0 Carbon Dioxide Anion Gap BUN Creatinine Est GFR ( Amer) Est GFR (Non-Af Amer) POC Glucose (mg/dL) 152 H Random Glucose Calcium Venous Blood Potassium 3.4 L Urine Color Urine Clarity Urine pH Ur Specific Farina Urine Protein Urine Glucose (UA) Urine Ketones Urine Blood Urine Nitrate Urine Bilirubin Urine Urobilinogen Ur Leukocyte Esterase Urine RBC (Auto) Urine WBC Clumps (Auto) Urine Microscopic WBC Ur Squamous Epith Cells Urine Bacteria C. difficile Ag & Toxin 06/25/17 06/25/17 06/25/17 06:50 10:56 15:12 WBC RBC Hgb Hct MCV MCH MCHC RDW Plt Count MPV Neut % (Auto) Lymph % (Auto) Rice % (Auto) Eos % (Auto) Baso % (Auto) Neut # (Auto) Lymph # (Auto) Rice # (Auto) Eos # (Auto) Baso # (Auto) Neutrophils % (Manual) Band Neutrophils % Lymphocytes % (Manual) Monocytes % (Manual) Platelet Estimate Large Platelets Hypochromasia (manual) Anisocytosis (manual) Macrocytosis (manual) pO2 VBG pH VBG pCO2 VBG HCO3 VBG Total CO2 VBG O2 Sat (Calc) VBG Base Excess VBG Potassium Glucose Lactate FiO2 Sodium 143 Potassium 3.9 Chloride 101 Carbon Dioxide 27 Anion Gap 19 BUN 13 Creatinine 0.8 Est GFR ( Amer) > 60 Est GFR (Non-Af Amer) > 60 POC Glucose (mg/dL) 227 H Random Glucose 149 H Calcium 9.1 Venous Blood Potassium Urine Color Urine Clarity Urine pH Ur Specific Farina Urine Protein Urine Glucose (UA) Urine Ketones Urine Blood Urine Nitrate Urine Bilirubin Urine Urobilinogen Ur Leukocyte Esterase Urine RBC (Auto) Urine WBC Clumps (Auto) Urine Microscopic WBC Ur Squamous Epith Cells Urine Bacteria C. difficile Ag & Toxin Negative 06/25/17 06/25/17 06/26/17 15:40 21:43 05:20 WBC 13.8 H RBC 3.78 L Hgb 11.1 L Hct 33.2 L MCV 87.8 MCH 29.3 MCHC 33.4 RDW 13.1 Plt Count 260 MPV 8.7 Neut % (Auto) 75.4 H Lymph % (Auto) 15.2 L Rice % (Auto) 8.7 Eos % (Auto) 0.4 Baso % (Auto) 0.3 Neut # (Auto) 10.4 H Lymph # (Auto) 2.1 Rice # (Auto) 1.2 H Eos # (Auto) 0.1 Baso # (Auto) 0.0 Neutrophils % (Manual) Band Neutrophils % Lymphocytes % (Manual) Monocytes % (Manual) Platelet Estimate Large Platelets Hypochromasia (manual) Anisocytosis (manual) Macrocytosis (manual) pO2 VBG pH VBG pCO2 VBG HCO3 VBG Total CO2 VBG O2 Sat (Calc) VBG Base Excess VBG Potassium Glucose Lactate FiO2 Sodium Potassium Chloride Carbon Dioxide Anion Gap BUN Creatinine Est GFR ( Amer) Est GFR (Non-Af Amer) POC Glucose (mg/dL) 162 H 166 H Random Glucose Calcium Venous Blood Potassium Urine Color Urine Clarity Urine pH Ur Specific Farina Urine Protein Urine Glucose (UA) Urine Ketones Urine Blood Urine Nitrate Urine Bilirubin Urine Urobilinogen Ur Leukocyte Esterase Urine RBC (Auto) Urine WBC Clumps (Auto) Urine Microscopic WBC Ur Squamous Epith Cells Urine Bacteria C. difficile Ag & Toxin 06/26/17 06/26/17 06/26/17 05:20 05:40 11:21 WBC RBC Hgb Hct MCV MCH MCHC RDW Plt Count MPV Neut % (Auto) Lymph % (Auto) Rice % (Auto) Eos % (Auto) Baso % (Auto) Neut # (Auto) Lymph # (Auto) Rice # (Auto) Eos # (Auto) Baso # (Auto) Neutrophils % (Manual) Band Neutrophils % Lymphocytes % (Manual) Monocytes % (Manual) Platelet Estimate Large Platelets Hypochromasia (manual) Anisocytosis (manual) Macrocytosis (manual) pO2 VBG pH VBG pCO2 VBG HCO3 VBG Total CO2 VBG O2 Sat (Calc) VBG Base Excess VBG Potassium Glucose Lactate FiO2 Sodium 141 Potassium 3.7 Chloride 104 Carbon Dioxide 23 Anion Gap 18 BUN 10 Creatinine 0.7 Est GFR ( Amer) > 60 Est GFR (Non-Af Amer) > 60 POC Glucose (mg/dL) 115 H 215 H Random Glucose 126 H Calcium 8.9 Venous Blood Potassium Urine Color Urine Clarity Urine pH Ur Specific Farina Urine Protein Urine Glucose (UA) Urine Ketones Urine Blood Urine Nitrate Urine Bilirubin Urine Urobilinogen Ur Leukocyte Esterase Urine RBC (Auto) Urine WBC Clumps (Auto) Urine Microscopic WBC Ur Squamous Epith Cells Urine Bacteria C. difficile Ag & Toxin Microbiology 06/24/17 08:33 Urine,Clean Catch Urine Culture - Preliminary Gram Negative Landen 06/24/17 23:25 Blood-Venous Blood Culture - Preliminary NO GROWTH AFTER 24 HOURS 06/24/17 23:10 Blood-Venous Blood Culture - Preliminary NO GROWTH AFTER 24 HOURS Assessment and Plan (1) Pyelonephritis Status: Acute (2) Sepsis Status: Acute (3) Urinary tract infection Status: Acute (4) Fever Status: Acute (5) Leukocytosis Status: Acute - Assessment and Plan (Free Text) Assessment: A/P- 56 year old female with DM Ii admitted with UTI and found to have Right pyelonephritis. clinically better fevers are trending down leukocytosis improving. + UA urine cs from this admission-GNR blood cx- neg x 2 urine cx from 06/08/2017e.coli pansensitive and strep anginosus. plan- await ID and sensitivity of the GNR in urine cx. advise to continue with IV meropenem pending ID and sensitivity of the GNR in urine cx. monitor wbc and temp closely. all above d/w patient and she verbalizes full understanding of all above.
[2017-06-26] MEDS: Insulin Detemir 100 Units/ml Inj SC SCH (22:05)
[2017-06-27] MEDS: Meropenem 1 GM in Sodium Chloride 0.9% 100 ML IVPB SCH ×3 (00:04→17:52)
[2017-06-27] MEDS: Insulin Regular 100 units/ml SC SCH ×4 (07:09→22:13)
[2017-06-27 08:39] LABS: BASO % 0.5 % (0.0-2.0); EOS # 0.1 K/uL (0.0-0.7); EOS % 0.8 % (0.0-4.0); HEMOGLOBIN 11.2 g/dL (12.0-16.0); LYMPH # 2.3 K/uL (1.0-4.3); LYMPH % 24.6 % (20.0-40.0); MEAN CELL VOLUME 88.1 fl (81.0-99.0); MEAN CORPUSCULAR HEMOGLOBIN 29.3 pg (27.0-31.0); MEAN CORPUSCULAR HGB CONC 33.3 g/dL (33.0-37.0); MEAN PLATELET VOLUME 8.8 fl (7.2-11.7); MONO # 1.1 K/uL (0.0-0.8); MONO % 11.5 % (0.0-10.0); NEUT # 5.9 K/uL (1.8-7.0); NEUT % 62.6 % (50.0-75.0); NRBC % 0.1 % (0.0-0.0); RBC 3.84 Mil/uL (3.80-5.20); WHITE BLOOD COUNT 9.5 K/uL (4.8-10.8)
[2017-06-27] MEDS: Enoxaparin 40 mg Syringe SC SCH (08:56)
--- NOTE | 2017-06-27 14:26 | CP.PCM.PN ---
Subjective - Date & Time of Evaluation Date of Evaluation: 06/27/17 Time of Evaluation: 11:30 - Subjective Subjective: Still with fever though WBC now normal flank pain and hypogastric pain better denies CP no SOB Objective - Vital Signs/Intake and Output Vital Signs (last 24 hours): Temp Pulse Resp BP Pulse Ox 99.4 F 102 H 20 149/86 97 06/27/17 12:34 06/27/17 11:27 06/27/17 11:27 06/27/17 11:27 06/27/17 11:27 - Medications Medications: Current Medications Acetaminophen (Tylenol 325mg Tab) 650 mg PO Q4 PRN PRN Reason: Fever >100.4 F Last Admin: 06/27/17 11:34 Dose: 650 mg Acetaminophen (Tylenol 325mg Tab) 650 mg PO Q4 PRN PRN Reason: For Pain scale 1-7 Enoxaparin Sodium (Lovenox) 40 mg SC DAILY [facility] PRN Reason: Protocol Last Admin: 06/27/17 08:56 Dose: 40 mg Meropenem 1 gm/ Sodium (Chloride) 100 mls @ 100 mls/hr IVPB Q8 [facility] PRN Reason: Protocol Last Admin: 06/27/17 08:55 Dose: 100 mls/hr Ibuprofen (Motrin Tab) 600 mg PO Q6 PRN PRN Reason: Pain, severe (8-10) Last Admin: 06/25/17 09:25 Dose: 600 mg Insulin Detemir (Levemir) 8 units SC HS [facility] Last Admin: 06/26/17 22:05 Dose: 8 units Insulin Human Regular (Humulin R) 0 units SC [facility] PRN Reason: Protocol Last Admin: 06/27/17 13:38 Dose: 2 units Ketorolac Tromethamine (Toradol) 15 mg IVP Q6 PRN PRN Reason: Pain, moderate (4-7) Ketorolac Tromethamine (Toradol) 30 mg IVP Q6 PRN PRN Reason: Pain, severe (8-10) Last Admin: 06/26/17 23:58 Dose: 30 mg - Labs Labs: 06/27/17 06:30 06/26/17 05:20 - Constitutional Appears: No Acute Distress - Head Exam Head Exam: ATRAUMATIC, NORMAL INSPECTION, NORMOCEPHALIC - Eye Exam Eye Exam: EOMI, Normal appearance Pupil Exam: NORMAL ACCOMODATION - ENT Exam ENT Exam: Mucous Membranes Moist, Normal External Ear Exam - Neck Exam Neck Exam: Full ROM. absent: Meningismus - Respiratory Exam Respiratory Exam: NORMAL BREATHING PATTERN. absent: Respiratory Distress - Cardiovascular Exam Cardiovascular Exam: REGULAR RHYTHM, +S1, +S2 - GI/Abdominal Exam GI & Abdominal Exam: Soft, Tenderness (hypogastric), Normal Bowel Sounds - Extremities Exam Extremities Exam: Full ROM, Normal Capillary Refill. absent: Calf Tenderness, Pedal Edema - Back Exam Back Exam: + CVA tenderness (L), CVA tenderness (R) - Neurological Exam Neurological Exam: Alert, Awake, CN II-XII Intact, Oriented x3 - Psychiatric Exam Psychiatric exam: Normal Affect, Normal Mood - Skin Skin Exam: Dry, Normal Color, Warm Assessment and Plan (1) Sepsis Status: Acute (2) Pyelonephritis Status: Acute (3) DM type 2 (diabetes mellitus, type 2) Status: Acute - Assessment and Plan (Free Text) Assessment: 56 y/o lady with hx of DM, came in bec of fever, dysuria and flank pain. CT of the abd/Pelvis: Right pyelonephritis, right renal pelvic and bilateral ureteral mucosal thickening and enhancement consistent with urinary tract infection; bladder wall thickening consistent with cystitis;; ileus; possible enterocolitis (1) Sepsis sec to Pyelonephritis Status: Acute Pt still with fever though leukocytosis resolved Urine c/s: Gram neg rods Blood c/s: neg so far cont IV Meropenem ID: following pt IVF hydration (2) DM type 2 (diabetes mellitus, type 2) Status: Acute accucheck cont Levemir 8 units q hs DVT proph: Lovenox
[2017-06-27] MEDS: Sodium Chloride 0.9% 1,000 ML IV SCH ×2 (19:18→22:14)
[2017-06-27] MEDS: Insulin Detemir 100 Units/ml Inj SC SCH (22:52)
[2017-06-28] MEDS: Meropenem 1 GM in Sodium Chloride 0.9% 100 ML IVPB SCH ×3 (00:12→16:05)
[2017-06-28] MEDS: Sodium Chloride 0.9% 1,000 ML IV SCH ×4 (00:13→18:42)
[2017-06-28] MEDS: Insulin Regular 100 units/ml SC SCH ×4 (07:54→22:24)
[2017-06-28] MEDS: Enoxaparin 40 mg Syringe SC SCH (08:24)
--- NOTE | 2017-06-28 10:57 | CP.PCM.PN ---
Subjective - Date & Time of Evaluation Date of Evaluation: 06/28/17 Time of Evaluation: 10:30 - Subjective Subjective: Pt still with low grade fever today leukocytosis resolved still with right flank pain but better denies SOB has slight cough no CP no diarrhea Objective - Vital Signs/Intake and Output Vital Signs (last 24 hours): Temp Pulse Resp BP Pulse Ox 99.3 F 96 H 20 155/83 H 97 06/28/17 07:58 06/28/17 07:58 06/28/17 07:58 06/28/17 07:58 06/28/17 07:58 - Medications Medications: Current Medications Acetaminophen (Tylenol 325mg Tab) 650 mg PO Q4 PRN PRN Reason: Fever >100.4 F Last Admin: 06/27/17 17:52 Dose: 650 mg Acetaminophen (Tylenol 325mg Tab) 650 mg PO Q4 PRN PRN Reason: For Pain scale 1-7 Enoxaparin Sodium (Lovenox) 40 mg SC DAILY [facility] PRN Reason: Protocol Last Admin: 06/28/17 08:24 Dose: 40 mg Meropenem 1 gm/ Sodium (Chloride) 100 mls @ 100 mls/hr IVPB Q8 [facility] PRN Reason: Protocol Last Admin: 06/28/17 08:25 Dose: 100 mls/hr Sodium Chloride (Sodium Chloride 0.9%) 1,000 mls @ 100 mls/hr IV .Q10H [facility] Stop: 06/28/17 18:33 Last Admin: 06/28/17 08:25 Dose: Not Given Ibuprofen (Motrin Tab) 600 mg PO Q6 PRN PRN Reason: Pain, severe (8-10) Last Admin: 06/25/17 09:25 Dose: 600 mg Insulin Detemir (Levemir) 8 units SC HS [facility] Last Admin: 06/27/17 22:52 Dose: 8 units Insulin Human Regular (Humulin R) 0 units SC ACHS [facility] PRN Reason: Protocol Last Admin: 06/28/17 07:54 Dose: Not Given Ketorolac Tromethamine (Toradol) 15 mg IVP Q6 PRN PRN Reason: Pain, moderate (4-7) Ketorolac Tromethamine (Toradol) 30 mg IVP Q6 PRN PRN Reason: Pain, severe (8-10) Last Admin: 06/26/17 23:58 Dose: 30 mg - Labs Labs: 06/27/17 06:30 06/26/17 05:20 - Constitutional Appears: No Acute Distress - Head Exam Head Exam: ATRAUMATIC, NORMAL INSPECTION, NORMOCEPHALIC - Eye Exam Eye Exam: EOMI, Normal appearance Pupil Exam: NORMAL ACCOMODATION - ENT Exam ENT Exam: Mucous Membranes Moist, Normal External Ear Exam - Neck Exam Neck Exam: Full ROM. absent: Meningismus - Respiratory Exam Respiratory Exam: NORMAL BREATHING PATTERN. absent: Respiratory Distress - Cardiovascular Exam Cardiovascular Exam: REGULAR RHYTHM, +S1, +S2 - GI/Abdominal Exam GI & Abdominal Exam: Soft, Tenderness (hypogastric), Normal Bowel Sounds - Extremities Exam Extremities Exam: Full ROM, Normal Capillary Refill. absent: Calf Tenderness, Pedal Edema - Back Exam Back Exam: + CVA tenderness (L), CVA tenderness (R) - Neurological Exam Neurological Exam: Alert, Awake, CN II-XII Intact, Oriented x3 - Psychiatric Exam Psychiatric exam: Normal Affect, Normal Mood - Skin Skin Exam: Dry, Normal Color, Warm Assessment and Plan (1) Sepsis Status: Acute (2) Pyelonephritis Status: Acute (3) DM type 2 (diabetes mellitus, type 2) Status: Acute - Assessment and Plan (Free Text) Assessment: 56 y/o lady with hx of DM, came in bec of fever, dysuria and flank pain. CT of the abd/Pelvis: Right pyelonephritis, right renal pelvic and bilateral ureteral mucosal thickening and enhancement consistent with urinary tract infection; bladder wall thickening consistent with cystitis;; ileus; possible enterocolitis Urine c/: E coli : pansensitive (1) Sepsis sec to Pyelonephritis Status: Acute Pt still with fever though leukocytosis resolved , pt has no other sxs other than flank pain Urine c/s: E coli pansensitive Blood c/s: neg so far, rpt blood c/s cont IV Meropenem ID: following pt IVF hydration Influenza : neg CXR (2) DM type 2 (diabetes mellitus, type 2) Status: Acute accucheck cont Levemir 8 units q hs DVT proph: Lovenox
--- NOTE | 2017-06-28 12:23 | CP.PCM.PN ---
Subjective - Date & Time of Evaluation Date of Evaluation: 06/28/17 Time of Evaluation: 14:00 - Subjective Subjective: ID Note- Pt. seen and examined today. states feels better but still has very mild lower abd tenderness. denies any dysurea. denies any diarrhea. still has temp spikes once a day. t-max-102 last night Objective - Vital Signs/Intake and Output Vital Signs (last 24 hours): Temp Pulse Resp BP Pulse Ox 99.3 F 96 H 20 155/83 H 97 06/28/17 07:58 06/28/17 07:58 06/28/17 07:58 06/28/17 07:58 06/28/17 07:58 - Medications Medications: Current Medications Acetaminophen (Tylenol 325mg Tab) 650 mg PO Q4 PRN PRN Reason: Fever >100.4 F Last Admin: 06/27/17 17:52 Dose: 650 mg Acetaminophen (Tylenol 325mg Tab) 650 mg PO Q4 PRN PRN Reason: For Pain scale 1-7 Enoxaparin Sodium (Lovenox) 40 mg SC DAILY [facility] PRN Reason: Protocol Last Admin: 06/28/17 08:24 Dose: 40 mg Meropenem 1 gm/ Sodium (Chloride) 100 mls @ 100 mls/hr IVPB Q8 [facility] PRN Reason: Protocol Last Admin: 06/28/17 08:25 Dose: 100 mls/hr Sodium Chloride (Sodium Chloride 0.9%) 1,000 mls @ 100 mls/hr IV .Q10H [facility] Stop: 06/28/17 18:33 Last Admin: 06/28/17 08:25 Dose: Not Given Ibuprofen (Motrin Tab) 600 mg PO Q6 PRN PRN Reason: Pain, severe (8-10) Last Admin: 06/25/17 09:25 Dose: 600 mg Insulin Detemir (Levemir) 8 units SC HS [facility] Last Admin: 06/27/17 22:52 Dose: 8 units Insulin Human Regular (Humulin R) 0 units SC ACHS [facility] PRN Reason: Protocol Last Admin: 06/28/17 07:54 Dose: Not Given Ketorolac Tromethamine (Toradol) 15 mg IVP Q6 PRN PRN Reason: Pain, moderate (4-7) Ketorolac Tromethamine (Toradol) 30 mg IVP Q6 PRN PRN Reason: Pain, severe (8-10) Last Admin: 06/26/17 23:58 Dose: 30 mg - Labs Labs: - Additional Findings Additional findings: - Constitutional Appears: No Acute Distress - Head Exam Head Exam: ATRAUMATIC - Eye Exam Eye Exam: EOMI, PERRL - ENT Exam ENT Exam: Normal Oropharynx - Neck Exam Neck exam: Positive for: Full Rom - Respiratory Exam Respiratory Exam: Clear to Auscultation Bilateral, NORMAL BREATHING PATTERN - Cardiovascular Exam Cardiovascular Exam: RRR, +S1, +S2 - GI/Abdominal Exam GI & Abdominal Exam: Normal Bowel Sounds, Soft Additional comments: + tenderness with palpation in the lower abd , right lower abd and flank and + right CVA tenderness but less than yesterday No rebound - Extremities Exam Extremities exam: Positive for: normal inspection - Neurological Exam Neurological exam: Alert, Oriented x 3 Laboratory Results - last 72 hr 06/25/17 06/25/17 06/25/17 15:12 15:40 21:43 WBC RBC Hgb Hct MCV MCH MCHC RDW Plt Count MPV Neut % (Auto) Lymph % (Auto) Harney % (Auto) Eos % (Auto) Baso % (Auto) Neut # (Auto) Lymph # (Auto) Harney # (Auto) Eos # (Auto) Baso # (Auto) Sodium Potassium Chloride Carbon Dioxide Anion Gap BUN Creatinine Est GFR ( Amer) Est GFR (Non-Af Amer) POC Glucose (mg/dL) 162 H 166 H Random Glucose Hemoglobin A1c Calcium C. difficile Ag & Toxin Negative Influenza Typ A,B (EIA) 06/26/17 06/26/17 06/26/17 05:20 05:20 05:20 WBC 13.8 H RBC 3.78 L Hgb 11.1 L Hct 33.2 L MCV 87.8 MCH 29.3 MCHC 33.4 RDW 13.1 Plt Count 260 MPV 8.7 Neut % (Auto) 75.4 H Lymph % (Auto) 15.2 L Harney % (Auto) 8.7 Eos % (Auto) 0.4 Baso % (Auto) 0.3 Neut # (Auto) 10.4 H Lymph # (Auto) 2.1 Harney # (Auto) 1.2 H Eos # (Auto) 0.1 Baso # (Auto) 0.0 Sodium 141 Potassium 3.7 Chloride 104 Carbon Dioxide 23 Anion Gap 18 BUN 10 Creatinine 0.7 Est GFR ( Amer) > 60 Est GFR (Non-Af Amer) > 60 POC Glucose (mg/dL) Random Glucose 126 H Hemoglobin A1c 9.8 H Calcium 8.9 C. difficile Ag & Toxin Influenza Typ A,B (EIA) 06/26/17 06/26/17 06/26/17 05:40 11:21 16:12 WBC RBC Hgb Hct MCV MCH MCHC RDW Plt Count MPV Neut % (Auto) Lymph % (Auto) Harney % (Auto) Eos % (Auto) Baso % (Auto) Neut # (Auto) Lymph # (Auto) Harney # (Auto) Eos # (Auto) Baso # (Auto) Sodium Potassium Chloride Carbon Dioxide Anion Gap BUN Creatinine Est GFR ( Amer) Est GFR (Non-Af Amer) POC Glucose (mg/dL) 115 H 215 H 141 H Random Glucose Hemoglobin A1c Calcium C. difficile Ag & Toxin Influenza Typ A,B (EIA) 06/26/17 06/27/17 06/27/17 21:38 05:27 06:30 WBC 9.5 RBC 3.84 Hgb 11.2 L Hct 33.8 L MCV 88.1 MCH 29.3 MCHC 33.3 RDW 13.0 Plt Count 276 MPV 8.8 Neut % (Auto) 62.6 Lymph % (Auto) 24.6 Harney % (Auto) 11.5 H Eos % (Auto) 0.8 Baso % (Auto) 0.5 Neut # (Auto) 5.9 Lymph # (Auto) 2.3 Harney # (Auto) 1.1 H Eos # (Auto) 0.1 Baso # (Auto) 0.0 Sodium Potassium Chloride Carbon Dioxide Anion Gap BUN Creatinine Est GFR ( Amer) Est GFR (Non-Af Amer) POC Glucose (mg/dL) 140 H 137 H Random Glucose Hemoglobin A1c Calcium C. difficile Ag & Toxin Influenza Typ A,B (EIA) 06/27/17 06/27/17 06/27/17 11:35 16:11 21:38 WBC RBC Hgb Hct MCV MCH MCHC RDW Plt Count MPV Neut % (Auto) Lymph % (Auto) Harney % (Auto) Eos % (Auto) Baso % (Auto) Neut # (Auto) Lymph # (Auto) Harney # (Auto) Eos # (Auto) Baso # (Auto) Sodium Potassium Chloride Carbon Dioxide Anion Gap BUN Creatinine Est GFR ( Amer) Est GFR (Non-Af Amer) POC Glucose (mg/dL) 193 H 119 H 165 H Random Glucose Hemoglobin A1c Calcium C. difficile Ag & Toxin Influenza Typ A,B (EIA) 06/28/17 06/28/17 06/28/17 05:42 10:58 11:06 WBC RBC Hgb Hct MCV MCH MCHC RDW Plt Count MPV Neut % (Auto) Lymph % (Auto) Harney % (Auto) Eos % (Auto) Baso % (Auto) Neut # (Auto) Lymph # (Auto) Harney # (Auto) Eos # (Auto) Baso # (Auto) Sodium Potassium Chloride Carbon Dioxide Anion Gap BUN Creatinine Est GFR ( Amer) Est GFR (Non-Af Amer) POC Glucose (mg/dL) 132 H 184 H Random Glucose Hemoglobin A1c Calcium C. difficile Ag & Toxin Influenza Typ A,B (EIA) Negative for flu a/b 06/28/17 15:47 WBC RBC Hgb Hct MCV MCH MCHC RDW Plt Count MPV Neut % (Auto) Lymph % (Auto) Harney % (Auto) Eos % (Auto) Baso % (Auto) Neut # (Auto) Lymph # (Auto) Harney # (Auto) Eos # (Auto) Baso # (Auto) Sodium Potassium Chloride Carbon Dioxide Anion Gap BUN Creatinine Est GFR ( Amer) Est GFR (Non-Af Amer) POC Glucose (mg/dL) 143 H Random Glucose Hemoglobin A1c Calcium C. difficile Ag & Toxin Influenza Typ A,B (EIA) Microbiology 06/24/17 23:25 Blood-Venous Blood Culture - Preliminary NO GROWTH AFTER 3 DAYS 06/24/17 23:10 Blood-Venous Blood Culture - Preliminary NO GROWTH AFTER 3 DAYS 06/24/17 08:33 Urine,Clean Catch Urine Culture - Final Escherichia Coli Assessment and Plan (1) Pyelonephritis Status: Acute (2) Sepsis Status: Acute (3) Urinary tract infection Status: Acute (4) Fever Status: Acute (5) Leukocytosis Status: Acute - Assessment and Plan (Free Text) Assessment: A/P- 56 year old female with DM Ii admitted with UTI and found to have Right pyelonephritis. clinically better temp spike 102 last night leukocytosis has resolved. + UA urine cs from this admission-e.coli coker sensitive blood cx- neg x 2 urine cx from 06/08/2017e.coli pansensitive and strep anginosus. plan- advise to continue with IV meropenem day #4 for e.coli UTI/pyelonephritis. check 2 more blood cx today since had fever. check CXR r/o atelectais. monitor wbc and temp closely. all above d/w patient and she verbalizes full understanding of all above.
[2017-06-28] MEDS: Insulin Detemir 100 Units/ml Inj SC SCH (22:26)
[2017-06-29] MEDS: Meropenem 1 GM in Sodium Chloride 0.9% 100 ML IVPB SCH ×2 (00:37→09:39)
[2017-06-29] MEDS: Insulin Regular 100 units/ml SC SCH ×2 (07:13→12:35)
[2017-06-29 07:50] VITALS: BP 159/92; PULSE 88; RESP 18; TEMP 99.1; O2SAT 98
[2017-06-29] MEDS: Enoxaparin 40 mg Syringe SC SCH (09:39)
--- NOTE | 2017-06-29 12:58 | RAD ---
PROCEDURE: CHEST RADIOGRAPH, 1 VIEW HISTORY: fever COMPARISON: None available. FINDINGS: LUNGS: Clear. PLEURA: No pneumothorax or pleural fluid seen. CARDIOVASCULAR: Normal. OSSEOUS STRUCTURES: Degenerative changes. VISUALIZED UPPER ABDOMEN: Right upper quadrant surgical clips. OTHER FINDINGS: None. IMPRESSION: No active disease.
--- NOTE | 2017-06-29 15:38 | CP.PCM.DIS ---
Provider - Provider Date of Admission: 06/24/17 23:43 Attending physician: Kennedy Campos Consults: Dr Elias Time Spent in preparation of Discharge (in minutes): 25 Diagnosis - Discharge Diagnosis (1) Pyelonephritis Status: Acute Comment: pain free and afebrile since yesterday. continue Cipro 500mg PO BID for 7 days. follow up with PCP when antibiotics are all consumed (2) DM type 2 (diabetes mellitus, type 2) Status: Chronic Comment: BS stable. continue Levemir 8 units SC HS Hospital Course - Lab Results Lab Results: Micro Results 06/24/17 23:25 Blood-Venous Blood Culture - Preliminary NO GROWTH AFTER 4 DAYS 06/24/17 23:10 Blood-Venous Blood Culture - Preliminary NO GROWTH AFTER 4 DAYS 06/27/17 18:19 Blood Blood Culture - Preliminary NO GROWTH AFTER 24 HOURS 06/27/17 18:19 Blood Blood Culture - Preliminary NO GROWTH AFTER 24 HOURS 06/24/17 08:33 Urine,Clean Catch Urine Culture - Final Escherichia Coli Most Recent Lab Values WBC 9.5 K/uL (4.8-10.8) 06/27/17 06:30 RBC 3.84 Mil/uL (3.80-5.20) 06/27/17 06:30 Hgb 11.2 g/dL (12.0-16.0) L 06/27/17 06:30 Hct 33.8 % (34.0-47.0) L 06/27/17 06:30 MCV 88.1 fl (81.0-99.0) 06/27/17 06:30 MCH 29.3 pg (27.0-31.0) 06/27/17 06:30 MCHC 33.3 g/dL (33.0-37.0) 06/27/17 06:30 RDW 13.0 % (11.5-14.5) 06/27/17 06:30 Plt Count 276 K/uL (130-400) 06/27/17 06:30 MPV 8.8 fl (7.2-11.7) 06/27/17 06:30 Neut % (Auto) 62.6 % (50.0-75.0) 06/27/17 06:30 Lymph % (Auto) 24.6 % (20.0-40.0) 06/27/17 06:30 Ramsey % (Auto) 11.5 % (0.0-10.0) H 06/27/17 06:30 Eos % (Auto) 0.8 % (0.0-4.0) 06/27/17 06:30 Baso % (Auto) 0.5 % (0.0-2.0) 06/27/17 06:30 Neut # (Auto) 5.9 K/uL (1.8-7.0) 06/27/17 06:30 Lymph # (Auto) 2.3 K/uL (1.0-4.3) 06/27/17 06:30 Ramsey # (Auto) 1.1 K/uL (0.0-0.8) H 06/27/17 06:30 Eos # (Auto) 0.1 K/uL (0.0-0.7) 06/27/17 06:30 Baso # (Auto) 0.0 K/uL (0.0-0.2) 06/27/17 06:30 Neutrophils % (Manual) 80 % (42-75) H 06/24/17 23:15 Band Neutrophils % 7 % (0-2) H 06/24/17 23:15 Lymphocytes % (Manual) 11 % (20-50) L 06/24/17 23:15 Monocytes % (Manual) 2 % (0-10) 06/24/17 23:15 Platelet Estimate Normal (NORMAL) 06/24/17 23:15 Large Platelets Present 06/24/17 23:15 Hypochromasia (manual) Slight 06/24/17 23:15 Anisocytosis (manual) Slight 06/24/17 23:15 Macrocytosis (manual) Slight 06/24/17 23:15 pO2 46 mm/Hg (30-55) 06/24/17 23:26 VBG pH 7.56 (7.32-7.43) H 06/24/17 23:26 VBG pCO2 31 mmHg (40-60) L 06/24/17 23:26 VBG HCO3 29.3 mmol/L 06/24/17 23:26 VBG Total CO2 28.8 mmol/L (22-28) H 06/24/17 23:26 VBG O2 Sat (Calc) 92.8 % (40-65) H 06/24/17 23:26 VBG Base Excess 5.9 mmol/L (0.0-2.0) H 06/24/17 23:26 VBG Potassium 3.4 mmol/L (3.6-5.2) L 06/24/17 23:26 Sodium 136.0 mmol/L (132-148) 06/24/17 23:26 Chloride 100.0 mmol/L (98-107) 06/24/17 23:26 Glucose 208 mg/dL (65-105) H 06/24/17 23:26 Lactate 1.9 mmol/L (0.7-2.1) 06/24/17 23:26 FiO2 21.0 % 06/24/17 23:26 Sodium 141 mmol/l (132-148) 06/26/17 05:20 Potassium 3.7 MMOL/L (3.6-5.0) 06/26/17 05:20 Chloride 104 mmol/L (98-107) 06/26/17 05:20 Carbon Dioxide 23 mmol/L (22-30) 06/26/17 05:20 Anion Gap 18 (10-20) 06/26/17 05:20 BUN 10 mg/dl (7-17) 06/26/17 05:20 Creatinine 0.7 mg/dl (0.7-1.2) 06/26/17 05:20 Est GFR ( Amer) > 60 06/26/17 05:20 Est GFR (Non-Af Amer) > 60 06/26/17 05:20 POC Glucose (mg/dL) 166 mg/dL (65-110) H 06/29/17 10:53 Random Glucose 126 mg/dL (65-105) H 06/26/17 05:20 Hemoglobin A1c 9.8 % (4.2-6.5) H 06/26/17 05:20 Calcium 8.9 mg/dL (8.4-10.2) 06/26/17 05:20 Venous Blood Potassium 3.4 mmol/L (3.6-5.2) L 06/24/17 23:26 Urine Color Janell (YELLOW) 06/24/17 22:58 Urine Clarity Cloudy (Clear) 06/24/17 22:58 Urine pH 7.0 (5.0-8.0) 03/08/18 22:58 Ur Specific Rochelle 1.015 (1.003-1.030) 06/24/17 22:58 Urine Protein 100 mg/dL (NEGATIVE) 06/24/17 22:58 Urine Glucose (UA) Neg mg/dL (Normal) 06/24/17 22:58 Urine Ketones Negative mg/dL (NEGATIVE) 06/24/17 22:58 Urine Blood Small (NEGATIVE) 06/24/17 22:58 Urine Nitrate Positive (NEGATIVE) H 06/24/17 22:58 Urine Bilirubin Negative (NEGATIVE) 06/24/17 22:58 Urine Urobilinogen 2.0 mg/dL (0.2-1.0) H 06/24/17 22:58 Ur Leukocyte Esterase Large Guerline/uL (Negative) 06/24/17 22:58 Urine RBC (Auto) 70 /hpf (0-3) H 06/24/17 22:58 Urine WBC Clumps (Auto) Few /hpf (NONE) H 06/24/17 22:58 Urine Microscopic WBC 796 /hpf (0-5) H 06/24/17 22:58 Ur Squamous Epith Cells 16 /hpf (0-5) H 06/24/17 22:58 Urine Bacteria Rare (<OCC) 06/24/17 22:58 C. difficile Ag & Toxin Negative (NEGATIVE) 06/25/17 15:12 Influenza Typ A,B (EIA) Negative for flu a/b (NEGATIVE) 06/28/17 11:06 - Hospital Course Hospital Course: 56 yo female with history of DM2, HTN and HLD admitted because of fever associated with right back pain, dysuria and increased urinary frequency. CT scan of abdomen showed right pyelonephritis. Urine culture grew E coli sensitive to multiple antibiotics but mostly to Cipro. Patient was initially started on IV Meropenem and was able to receive it for 4 days. Patient condition improved and was discharged in stable condition. She will continue PO Cipro 500mg twice a day for 7 days. Discharge Exam - Head Exam Head Exam: ATRAUMATIC, NORMAL INSPECTION, NORMOCEPHALIC - Eye Exam Eye Exam: absent: Scleral icterus - ENT Exam ENT Exam: Mucous Membranes Moist - Respiratory Exam Respiratory Exam: absent: Rales, Rhonchi, Wheezes, Respiratory Distress - Cardiovascular Exam Cardiovascular Exam: REGULAR RHYTHM, +S1, +S2 - GI/Abdominal Exam GI & Abdominal Exam: Soft. absent: Tenderness - Rectal Exam Rectal Exam: Deferred - Neurological Exam Neurological exam: Alert, Oriented x3 - Psychiatric Exam Psychiatric exam: Normal Affect - Skin Skin Exam: Dry, Intact Discharge Plan - Discharge Medications Prescriptions: Ciprofloxacin [Cipro] 500 mg PO BID #14 tab - Follow Up Plan Condition: FAIR Disposition: HOME/ ROUTINE Instructions: Urinary Tract Infection, Adult (DC) Additional Instructions: May return to work after 3 days. Follow up with your primary MD 1 week upon completion of antibiotics Referrals: Sandrine Elias MD [Staff Provider] - Hunter Guevara MD [Family Provider] -
== END 2017-06-29 15:50 | disposition home or self-care (01) | DRG 872 ==
LOC: H.ER 21:55 → H.ERHOLD 23:43 → H.MEDSURG1 06-25 01:53
PROVIDERS: ADMIT Internal Medicine; ATTEND Internal Medicine
DX: A41.9 Sepsis, unspecified organism (principal); N10 Acute pyelonephritis; N30.00 Acute cystitis without hematuria; B96.20 Unspecified Escherichia coli [E. coli] as the cause of diseases classified elsewhere; E11.65 Type 2 diabetes mellitus with hyperglycemia; E87.6 Hypokalemia; K52.9 Noninfective gastroenteritis and colitis, unspecified; I10 Essential (primary) hypertension; E78.5 Hyperlipidemia, unspecified; Z79.4 Long term (current) use of insulin; Z91.040 Latex allergy status; Z91.018 Allergy to other foods; Z87.440 Personal history of urinary (tract) infections